=== PATIENT | male | born 1955 | race Caucasian/White ===

== ENCOUNTER 2017-07-16 09:39 | Inpatient (IN) ==
[2017-07-16] MEDS ORDERED: cefOXitin 2,000 MG in Water for inj. (sterile) 20 ML 10 ML IVP ONE (09:57)
[2017-07-16] MEDS ORDERED: Ringers Solution, Lactated 1,000 ML IVC SCH (10:00)
--- NOTE | 2017-07-16 10:20 | Anesthesia Evaluation PreOp ---
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 Collar bone abcess, CABG,) Alcohol Use: none Drug use: none Medications and Allergies Furosemide [Lasix] 20 mg PO DAILY 02/12/17 [History] Iron Ps Cmplx/Vit B12/FA [Iferex 150 Forte Capsule] 1 each PO DAILY 02/12/17 [ History] metFORMIN [Glucophage] 500 mg PO BID 02/12/17 [History] Aspirin Enteric Coated [Aspirin EC] 81 mg PO DAILY 03/21/17 [History] Lisinopril [Zestril] 10 mg PO DAILY 03/21/17 [History] Metoprolol [Lopressor] 50 mg PO BID 03/21/17 [History] Rosuvastatin [Crestor] 40 mg PO HS 03/21/17 [History] 3 Allergy/AdvReac Type Severity Reaction Status Date / Time No Known Allergies Allergy Verified 07/16/17 10:33 - Meds/Allergy Pre-op Review Medications Reviewed: Yes Allergies Reviewed: Yes Beta Blockers on Current Med List: Yes If Beta Blockers taken, Date/Time (Last Dose taken): 07/16/2017 @ 06:00 Anesthesia Results - Labs Laboratory Tests 04/22/17 07/09/17 15:14 16:03 WBC 6.3 Hgb 13.8 Hct 45.3 Plt Count 216 Sodium 138 Potassium 4.3 Chloride 106 Carbon Dioxide 25 BUN 20 Creatinine 1.01 Echocardiogram TTE Name: Torey Mondragon Date of Study: 10/29/2016 Impressions: LVEF 60%. Normal LV chamber size and function. Severe hypertrophy of the basal septum measuring 2.2 cm. Systolic anterior motion of the mitral valve leaflets. Mild LVOT obstruction, mean gradient 15 mmHg. Mild left ventricular diastolic dysfunction. Atypical septal motion consistent with post-operative status. Normal right ventricular structure and function. Moderate mitral stenosis by Doppler, mean gradient 8 mmHg (HR 85 bpm). Unable to estimate RVSP due to lack of TR jet. No evidence of pulmonary hypertension. There is a trivial pericardial effusion present. 10/29/2016 stress No ischemia EF-37% - Imaging EKG: report reviewed (SR, consider lat. ishemia) Anesthesia Exam Vital Signs/O2 Sat, Most Current Temp Pulse Resp BP Pulse Ox 97.8 F 71 18 129/82 97 07/16/17 10:01 07/16/17 10:01 07/16/17 10:01 07/16/17 10:01 07/16/17 10:01 NPO (# of Hours): > 8 hrs Pain Scale: 0 Pain Scale Used: Numeric (1 - 10) - HEENT Pupil (Motor): Pupils equal, EOMI Mallampati: II Teeth: Normal Oral Opening: Greater than 3 - PRODUCTION PLANNING SUPERVISOR LOC: Oriented PRODUCTION PLANNING SUPERVISOR Motor: Normal RUE, Normal LUE, Normal RLE, Normal LLE, Normal Face PRODUCTION PLANNING SUPERVISOR Sensory: Normal: RUE, LUE, RLE, LLE, Face - Cardiac Rhythm: Regular Murmur: None JVD: No Carotid Bruit: No - Pulmonary Breath Sounds: bilateral Clear Respiratory Effort: Symmetrical Anesthesia Assess/Plan ASA Score: 4 Modified Robert Scale for Level of Consciousness: Cooperative, oriented, and tranquil Anesthetic Plan: General, Regional Autologous Blood: Yes Monitoring Plan: Standard Monitors, A-Line, CVC
[2017-07-16] MEDS ORDERED: Heparin 1,000 UNITS/500 mL 500 ML ONE ×2 (11:07→13:18)
[2017-07-16] MEDS ORDERED: *HR* Etomidate 40 MG/20 ML VIAL IVP ONE (11:55)
[2017-07-16] MEDS ORDERED: *HR* Midazolam HCl 2 MG/2 ML VIAL ONE (11:56)
[2017-07-16] MEDS ORDERED: *HR* FentaNYL (PF) 100 MCG/2 ML VIAL ONE ×4 (11:56→14:26)
--- NOTE | 2017-07-16 11:56 | History & Physical Report ---
Date of Encounter: 07/16/17 Time of Encounter: 11:56 24 Hour HP Update - Instructions Instructions: If the History and Physical is less than 30 days old and was completed prior to A.M. admission and or procedure and has NOT been updated on calendar day of procedure please complete this update prior to performing procedure. - Update Patient reports changes in Medical Condition: No Changes in examination, assessment, or condition: No Changes in Medication: No Preop tests/diagnostics Reviewed: Yes Pre-Op MRSA Screen: Negative Surgery Remains Indicated: Yes Consent for Planned Operative Procedure(s) Verified: Yes - Pre-Operative Checklist Preoperative Checklist Indicated: No Prophylactic Antibiotic Ordered: Yes Home Medications Include Beta Meli: No Beta Meli Taken Today (Day of Surgery): No Beta Meli Taken Yesterday (Day Prior to Surgery): No Is VTE Prophylaxis Indicated?: NO
[2017-07-16] MEDS ORDERED: *HR* Morphine Sulfate/PF 10 MG/10 ML AMPUL ONE (12:05)
[2017-07-16] MEDS ORDERED: *HR* Succinylcholine 200 MG/10 ML VIAL IVP ONE (12:12)
[2017-07-16] MEDS ORDERED: Lidocaine -MPF 2% 2 ML VIAL ONE (12:13)
[2017-07-16] MEDS ORDERED: Lidocaine -MPF 4% 5 ML AMPUL ONE (12:17)
[2017-07-16] MEDS ORDERED: *HR* PHENYLEPHRINE 1,000 MCG/10 ML SYRINGE IVP ONE (12:18)
[2017-07-16] MEDS ORDERED: *HR* Phenylephrine 10 MG/ML VIAL ONE (12:24)
[2017-07-16] MEDS ORDERED: CefOXitin 1,000 MG VIAL ONE (12:29)
[2017-07-16] MEDS ORDERED: Bupivacaine/EPI 1:200k 0.5%PF 30 ML VIAL ONE (12:30)
[2017-07-16] MEDS ORDERED: Dexamethasone 4 MG/ML VIAL ONE (14:37)
[2017-07-16] MEDS ORDERED: Ondansetron 4 MG/2 ML VIAL ONE (14:37)
--- NOTE | 2017-07-16 14:46 | Anesthesia Procedures ---
Date of Encounter: 07/16/17 Time of Encounter: 13:30 Procedures: Anesthesia - Arterial Line Consent obtained: written consent Time out performed: Yes Sedation: Versed (mg): 2 Sedation: Fentanyl (mcg): 2 Size (Gauge): 20 Length (inches): 1 3/4 Technique Used: sterile prep, guide wire technique, direct puncture technique Post-Procedure: line taped into place, dry sterile dressing placed Patient tolerated procedure: well Complications: none Site: Radial R Comments: attempt x 1 easy - Central Line Placement Right IJ Consent obtained: written consent Time out performed: Yes Patient placed on monitor/pulse ox: Yes prep: mask, gown, gloves Central line prep: Chlorhexidine scrub Ultrasound used for placement: Yes Technique: Seldinger Lumen Inserted: Introducer Post procedure: sutured in place, good blood return, all ports aspirated, flushed, capped, sterile dressing applied Patient tolerated procedure: well Complications: hematoma at puncture site Comments: Introducer placed for possible future need of swan richard catheter due to LVOT obstruction. Right IJ used, first attempt able to place guidewire but unable to easily advance dilator. Guide wire then is possibly contaminated so is removed. Hematoma forms but is contained with pressure. Second attempt is made and IJ accessed easily, guidewire without problems and introducer/dilator placed easily. Aspiration easy. Double lumen catheter placed thru introducer.
[2017-07-16] MEDS ORDERED: Ondansetron 4 MG/2 ML VIAL IVP PRN ×2 (14:57→19:27)
[2017-07-16] MEDS ORDERED: *HR* OxyCODONE/APAP 5/325 TABLET PO PRN (14:57)
[2017-07-16] MEDS ORDERED: Neostigmine Methylsulfate 3 MG/3 ML SYRINGE ONE (15:05)
[2017-07-16] MEDS ORDERED: *HR* Rocuronium Bromide 50 MG/5 ML VIAL ONE (15:12)
[2017-07-16] MEDS ORDERED: *HR* HYDROmorphone (PF) 1 MG/ML SYRINGE IVP PRN (15:27)
[2017-07-16] MEDS ORDERED: *HR* OxyCODONE Immed Rel 5 MG TABLET PO PRN (15:27)
[2017-07-16] MEDS ORDERED: *HR* Promethazine 25 MG/ML VIAL IVP PRN (15:27)
--- NOTE | 2017-07-16 15:41 | Anesthesia Procedures ---
Date of Encounter: 07/16/17 Time of Encounter: 13:10 Procedures: Anesthesia - Epidural/Spinal Patient ID/Chart reviewed: Yes Patient examined: Yes Supplemental Oxygen: Nasal Cannula Supplemental Oxygen Rate (L/min): 2 Sedation: Versed (mg): 2 Site Prep: Aseptic Technique, Sterile prep and drape, Povidone-Iodine 1% Patient position: upright Local Anesthetic: Lidocaine 1% Amount of Local Anesthetic used: 5 Spinal Needle Gauge: 22 Spinal Dose: 20 mcg fentanyl and 0.2 mg duramorph Procedure: patient placed sitting, back prepped L3/L4 level with betadine. 1% lidocaine at skin. introducer placed 25 g needle unsuccessful, 22 g needle used csf encountered, clear no blood or paraesthesia. meds injected, patient tolerated well, successful spinal block, block performed by Dr. Kaur. Vitals + FHT's: see anesthesia record for vitals
[2017-07-16] MEDS ORDERED: CefOXitin 2,000 MG VIAL ONE (17:25)
--- NOTE | 2017-07-16 17:40 | Operative Note ---
Date of procedure: 07/16/17 Pre-op diagnosis: Rectal cancer Post-op diagnosis: same Procedure: Low anterior resection Anesthesia: GETA Surgeon: Junior Marquis Was there an engineering inspection assistant present: Yes Human Resources Officer: Stefanie Ashby Estimated blood loss (cc): 75 Specimen: sigmoid/rectum, anastamotic rings Condition: stable Disposition: PACU Procedure in Detail: Date of surgery: 07/16/17 After properly identifying the patient, the patient was brought to the operating room and placed in the supine position. After proper IV sedation was achieved followed by general endotracheal intubation, the patient's abdomen was prepped and draped in a normal sterile fashion. A timeout was performed noting the patient's name and type of procedure to be performed. The patient was placed in a low lithotomy position prior to the prepping and draping. The perianal tissue was also prepped and draped along with the abdomin. A 10 blade scalpel was used to make an incision several centimeters above the umbilicus extending inferiorly down to the pubic symphysis. Dissection was carried through the subcutaneous tissue and rectus fascia until the abdomen was entered. A wound protector was placed through the incision to protect the subcutaneous tissue and a Bookwalter was brought onto the field to retract the fascial tissue laterally. The sigmoid was examined and dissected from the lateral wall down to the rectosigmoid junction was performed. The junction of the sigmoid colon to the descending colon was examined; the decision was made to transect across the colon with a INDIO stapler in this region. The mesentery was then dissected down towards the presacral space and posterior dissection was carried out with Bovie cauterization and utilization of a handheld Ligasure. The left ureter was identified and spared. Examination demonstrated that there was evidence of tenting along the anterior surface of the rectum consistent with the patient's diagnosis of a rectal cancer. This tenting was very low in the rectum just above the pelvic floor. There was thickness of the mesentery and also around the rectum in the presacral space due to the patient's neoadjuvant chemoradiation therapy. Bovie cauterization was used to maintain hemostasis and dissection was carried along the peritoneum anteriorly towards the bladder and prostate. The rectal mesentery was then transected with Bovie cauterization and utilization of a LigaSure and an attempt at placing a stapler below the level of the tenting or presumed location of the rectal cancer was made. During the retraction the anterior surface of the rectum was iatrogenically opened (an enterotomy was created) which was an anticipated and expected consequence due to the patient's neoadjuvant chemoradiation therapy and the tenting that was present. A Contour stapler was placed distal to the presumed location of the rectal cancer right at the pelvic floor and the staple was fired. The intervening colonic segment was then sent to pathology. The enterotomy was identified and Allis clamps were used to reapproximate the mucosa and a vascular TA stapler was then used to close the enterotomy. The pelvis was copiously irrigated with normal saline solution containing Mefoxin and the decision was then made to examine the colonic stump. The staple line was opened with Bovie cauterization and sizers were placed within the lumen to determine the appropriate size for anastamosis. A 29- Spanish EEA stapler was brought to the operative field. A 2-0 Prolene suture was used to create a pursestring and the anvil of the stapler device was placed within the lumen followed by tying of the pursestring. The EEA stapler was placed through the anus and the male end of the staple line was extruded above the level of the TA staple line. The anvil was then connected to the male and of the staple device and the staple line was then completed. Examination demonstrated 2 is anastomotic rings which were submitted to pathology. The pelvis was filled with normal saline solution containing Mefoxin and air was placed through the rectum while clamping of the distal colon (descending colon) was performed which demonstrated no evidence of a leak. The abdomen was copiously irrigated with normal saline solution containing Mefoxin and a 19- Spanish Bernardo drain was placed in the abdomen down to the pelvis. The decision was then made to place Seprafilm within the abdomen and close the midline incision with #1 looped PDS 2. The subcutaneous tissue was reapproximated with 2-0 Vicryl sutures and 2 On-Q pain pumps were placed along the midline incision through the subcutaneous tissue for pain control. The epidermal and dermal layers were closed with enrique. Needle, sponge, and instrument counts were correct 2 and the incision was covered with 4 x 4's. The patient was aroused from IV sedation, extubated in the operating room without complication, and transported to the recovery room in stable condition.
--- NOTE | 2017-07-16 19:02 | Anesthesia Evaluation Post Op ---
Date of Encounter: 07/16/17 Time of Encounter: 19:02 - Vital Signs Vital Signs: Vital Signs/O2 Sat, Most Current Temp Pulse Resp BP Pulse Ox 99.6 F 74 16 156/88 96 07/16/17 18:03 07/16/17 18:33 07/16/17 18:33 07/16/17 18:33 07/16/17 18:33 - Lungs Lungs: Clear Ascult./Percussion - Airway Airway: Non-obstructed - Cardiovascular Regular Rate - Mental Status Mental Status: Alert & Oriented, Answers Appropriately - Pain Pain Scale: 0 Pain Scale used: Numeric (1 - 10) - Nausea Vomiting Nausea Vomiting: Not Present - Hydration Hydration: Ice chips, Aragon catheter - Discharge PostOp Status: Transfer Patient to floor
[2017-07-16] MEDS ORDERED: Naloxone 0.4 MG/ML INJ IVP PRN ×2 (19:27)
[2017-07-16] MEDS ORDERED: D5% in Water 1,000 ML IVC PRN (19:27)
[2017-07-16] MEDS ORDERED: Dextrose Gel 15 GM/37.5 ML TUBE PO PRN ×2 (19:27)
[2017-07-16] MEDS ORDERED: *HR* Dextrose 50 % in Water (Syg) 50 ML SYRINGE IVP PRN (19:27)
[2017-07-16] MEDS: *HR* FentaNYL PATCH 25 MCG PATCH TD SCH (21:59)
[2017-07-16] MEDS: *HR* Metoprolol 5 MG/5 ML VIAL IVP SCH (22:02)
[2017-07-16] MEDS: 0.9 % Sodium Chloride 1,000 ML IVC SCH (22:02)
[2017-07-16] MEDS: Ketorolac 30 MG/ML VIAL IM SCH (22:02)
[2017-07-16] MEDS: Insulin LISPRO 300 UNITS/3 ML VIAL SQ SCH (22:02)
[2017-07-17] MEDS: Ketorolac 30 MG/ML VIAL IM SCH ×2 (00:15→06:12)
[2017-07-17] MEDS: Insulin LISPRO 300 UNITS/3 ML VIAL SQ SCH ×6 (00:19→23:36)
[2017-07-17] MEDS: cefOXitin 1,000 MG in Water for inj. (sterile) 20 ML 10 ML IVP SCH ×3 (00:21→16:27)
[2017-07-17] MEDS: *HR* Metoprolol 5 MG/5 ML VIAL IVP SCH ×5 (00:24→23:47)
[2017-07-17 06:02] LABS: Basophils % 0.1 %; Hematocrit 43.8 % (37.5-50.1); Hemoglobin 13.7 g/dL (12.9-16.9); Immature Granulocytes % 0.3 % (0-4); Lymphocytes # 1.1 K/mcL (0.6-4.6); Lymphocytes % 8.2 %; Mean Corpuscular HGB Conc 31.3 g/dL (31.6-35.5); Mean Corpuscular Hemoglobin 27.1 pg (28.0-33.3); Mean Corpuscular Volume 86.6 fL (83.0-100.0); Mean Platelet Volume 11.6 fL (9.4-12.4); Monocytes # 0.9 K/mcL (0.0-1.3); Monocytes % 6.5 %; Neutrophils # 11.3 K/mcL (1.6-8.9); Platelet Count 209 K/mcL (140-400); Red Blood Count 5.06 M/mcL (4.19-5.50); Red Cell Distribution Width 14.3 % (11.5-14.5); Segmented Neutrophils % 84.9 %
[2017-07-17 06:10] LABS: BUN/Creatinine Ratio 12 (6-26); Blood Urea Nitrogen 16 mg/dL (8-23); Calcium 8.7 mg/dL (8.6-10.3); Carbon Dioxide 23 mEq/L (23-29); Chloride 106 mEq/L (98-107); Glucose 157 mg/dL (70-105); Osmolality,Calculated 286 (280-300); Potassium 5.3 mEq/L (3.5-5.1); Sodium 136 mEq/L (136-145); eGFR For African Americans > 60 (> 60); eGFR For Non-African Americans 56 (> 60)
[2017-07-17] MEDS: 0.9 % Sodium Chloride 1,000 ML IVC SCH ×3 (06:10→21:40)
[2017-07-17] MEDS: Pantoprazole 40 MG VIAL IVP SCH (08:19)
--- NOTE | 2017-07-17 10:29 | General Surgery Progress Note ---
<Adia Pearson - Last Filed: 07/17/17 10:27> Date of Encounter: 07/17/17 Time of Encounter: 10:00 - Assessment and Plan (1) Rectal adenocarcinoma Status: Acute Postoperative day #1 Low anterior resection with Dr. Marquis Pathology pending Maintain bowel rest while awaiting return of bowel function NG tube to low intermittent wall suction IV fluids- 125ml/hour IV antibiotics- Cefoxitin Out of bed to chair and ambulate with assistance 3 times a day Incentive spirometer every 1 hour while awake GI prophylaxis Continue Aragon catheter for strict I's and O's Continue ALYSSA drain Continue On-Q pain pump 2 Repeat a.m. labs- CBC, BMP (2) Hyperglycemia Status: Acute Change sliding scale coverage to moderate scale every 4 hours We will continue to monitor and adjust as necessary (3) DVT prophylaxis Status: Acute Heparin 5000 units subcutaneous twice daily for DVT prophylaxis Intermittent compression stockings to bilateral lower extremities for DVT prophylaxis Ambulate hallways 3 times a day with assistance Subjective Patient reports: still having pain (post surgical pain well controlled), no flatus, no bowel movement, afebrile Objective Vital Signs - Last 8 Hours Temp Pulse Resp BP Pulse Ox 07/17/17 05:14 98.5 F 77 15 141/86 98 Intake and Output 07/16/17 07/17/17 07/17/17 23:59 07:59 15:59 Intake Total 1010 / 1010 282 / 282 Output Total 455 / 455 715 / 715 Balance -455 / -455 295 / 295 282 / 282 Intake: IV Fluids 1010 / 1010 282 / 282 0.9 % Sodium Chloride 1,000 ML 1000 / 1000 282 / 282 @ 125 mls/hr IVC .Q8H SANDRA Rx#: [id number] Mefoxin 1,000 MG In Water for inj. (sterile) 10 ML @ 150 mls/ hr IVP Q8HR SANDRA Rx#:[id number] Oral 0 / 0 Output: Urine 0 / 0 Estimated Blood Loss 75 / 75 Urine Amount (Catheter) 320 / 320 Catheter 675 / 675 Gastric Drainage 0 / 0 Wound Drainage 60 / 60 40 / 40 Left Lower Abdomen 60 / 60 40 / 40 Other: Meal NPO for breakfast Weight 110.4 kg Blood Glucose* 158 151 Patient Weight 07/17/17 23:59 Weight 110.4 kg - General physical appearance well developed, well nourished, no distress, obese - Eyes normal ocular movement - ENT dry mucosa, atraumatic, normocephalic - Neck Neck exam: trachea midline - Respiratory normal respiratory effort, clear to auscultation, other (diminished bibasilar bases) - Cardiovascular Cardiovascular exam: Present: RRR - Abdomen Abdomen: Present: bowel sounds present (minimal, hypoactive), soft, tender ( Expected postoperative tenderness), wound (ALYSSA drain to bulb suction with serosanguineous drainage noted (100ml noted since surgery); NG tube to low intermittent wall suction with 200 mL's of gastric drainage; On-Q pain pump 2 intact) - Incision Incision: Present: clean and dry, intact - Genitourinary other (Aragon catheter to straight drain with clear, yellow urine) - Neurologic CN 2-12 grossly intact - Psychiatric oriented to time, oriented to person, oriented to place, speech is normal, memory intact - Labs 07/17/17 04:04 07/17/17 04:04 Diabetes panel 07/17/17 Range/Units 04:04 Sodium 136 (136-145) mEq/L Potassium 5.3 H (3.5-5.1) mEq/L Chloride 106 (98-107) mEq/L Carbon Dioxide 23 (23-29) mEq/L BUN 16 (8-23) mg/dL Creatinine 1.30 (0.70-1.30) mg/dL Glucose 157 H (70-105) mg/dL Calcium 8.7 (8.6-10.3) mg/dL Calcium panel 07/17/17 Range/Units 04:04 Calcium 8.7 (8.6-10.3) mg/dL Pituitary panel 07/17/17 Range/Units 04:04 Sodium 136 (136-145) mEq/L Potassium 5.3 H (3.5-5.1) mEq/L Chloride 106 (98-107) mEq/L Carbon Dioxide 23 (23-29) mEq/L BUN 16 (8-23) mg/dL Creatinine 1.30 (0.70-1.30) mg/dL Glucose 157 H (70-105) mg/dL Calcium 8.7 (8.6-10.3) mg/dL Adrenal panel 07/17/17 Range/Units 04:04 Sodium 136 (136-145) mEq/L Potassium 5.3 H (3.5-5.1) mEq/L Chloride 106 (98-107) mEq/L Carbon Dioxide 23 (23-29) mEq/L BUN 16 (8-23) mg/dL Creatinine 1.30 (0.70-1.30) mg/dL Glucose 157 H (70-105) mg/dL Calcium 8.7 (8.6-10.3) mg/dL - VTE Documentation of Mechanical Device: Intermittent pneumatic compression device Consult Discharge Plan - Plan Instructions: Colectomy (DC), Colectomy (GEN) Additional Instructions: 1. No pushing, pulling, or lifting greater than 15 lbs for 4 weeks (depending upon procedure). 2. You may shower beginning today, but no tub baths, soaking, or swimming for 2 weeks. 3. You may resume driving when you are off narcotics and are safe to react in a car. 4. Take ibuprofen every 8 hours for discomfort. If this does not relieve discomfort, you may take the as needed Percocet. Take narcotics as directed. Do not take more narcotics then directed and do not share your narcotics with any other person. Do not drink alcohol while on narcotics. 5. Take stool softeners (Colace) or a water based laxative (Miralax) while taking narcotics. You may hold for loose stools. 6. Report any fevers greater than 100.5F, increase abdominal discomfort, drainage that looks like pus, increased redness or pain at the surgical site, or any vomiting. 7. Report any pain in the calves, shortness of breath, or rapid heartbeat. 8. Follow-up in the office as directed. 9. If you were prescribed antibiotics, do not stop them without talking to your provider. Referrals: Junior Marquis MD [Partnered Physician] - 07/29/17 4:25 pm Prescriptions: Ibuprofen [Motrin] 600 mg PO Q8HR PRN #30 tab PRN Reason: Pain Docusate [Colace] 100 mg PO BID PRN #30 capsule PRN Reason: Constipation Oxycodone HCl/Acetaminophen [Percocet 10-325 mg Tablet] 1 each PO Q6-8H PRN 6 Days #24 tablet PRN Reason: Pain - Attending Attestation For this encounter, I have reviewed the FOREIGN LANGUAGE STENOGRAPHER or PA documentation, treatment plan, and medical decision making; and I have had face to face time with this patient. <Junior Marquis M - Last Filed: 07/22/17 06:48> Date of Encounter: 07/17/17 Objective - Labs 07/20/17 06:39 07/20/17 06:39 - Attending Attestation I reviewed the above assessment and evaluation and agree with the above plan.
[2017-07-17] MEDS: *HR* Heparin 5,000 UNIT/ML VIAL SQ SCH ×2 (18:04→18:10)
[2017-07-17] MEDS: OXYCODONE Oral CONC 10 MG/0.5 ML ORAL.SYG SL PRN (21:38)
[2017-07-18] MEDS: OXYCODONE Oral CONC 10 MG/0.5 ML ORAL.SYG SL PRN ×3 (04:23→23:34)
[2017-07-18] MEDS: Insulin LISPRO 300 UNITS/3 ML VIAL SQ SCH ×5 (04:26→20:35)
[2017-07-18] MEDS: 0.9 % Sodium Chloride 1,000 ML IVC SCH ×3 (05:06→20:09)
[2017-07-18] MEDS: *HR* Heparin 5,000 UNIT/ML VIAL SQ SCH ×2 (05:07→18:08)
[2017-07-18] MEDS: *HR* Metoprolol 5 MG/5 ML VIAL IVP SCH ×4 (05:09→23:32)
[2017-07-18 07:28] LABS: Basophils % 0.3 %; Eosinophils # 0.1 K/mcL (0.0-0.6); Eosinophils % 0.5 %; Hematocrit 37.7 % (37.5-50.1); Immature Granulocytes % 0.2 % (0-4); Lymphocytes # 1.4 K/mcL (0.6-4.6); Lymphocytes % 14.9 %; Mean Corpuscular HGB Conc 30.5 g/dL (31.6-35.5); Mean Corpuscular Hemoglobin 27.1 pg (28.0-33.3); Mean Corpuscular Volume 88.7 fL (83.0-100.0); Mean Platelet Volume 11.4 fL (9.4-12.4); Monocytes # 0.8 K/mcL (0.0-1.3); Monocytes % 8.8 %; Neutrophils # 6.9 K/mcL (1.6-8.9); Platelet Count 151 K/mcL (140-400); Red Blood Count 4.25 M/mcL (4.19-5.50); Red Cell Distribution Width 14.6 % (11.5-14.5); Segmented Neutrophils % 75.3 %
[2017-07-18 07:51] LABS: Hemoglobin 11.5 g/dL (12.9-16.9)
[2017-07-18] MEDS: Pantoprazole 40 MG VIAL IVP SCH (08:07)
[2017-07-18 09:39] LABS: BUN/Creatinine Ratio 14 (6-26); Blood Urea Nitrogen 13 mg/dL (8-23); Calcium 8.4 mg/dL (8.6-10.3); Carbon Dioxide 25 mEq/L (23-29); Chloride 109 mEq/L (98-107); Glucose 122 mg/dL (70-105); Osmolality,Calculated 287 (280-300); Potassium 4.5 mEq/L (3.5-5.1); Sodium 138 mEq/L (136-145); eGFR For African Americans > 60 (> 60); eGFR For Non-African Americans > 60 (> 60)
--- NOTE | 2017-07-18 11:57 | General Surgery Progress Note ---
<Rita Guevara-Andreia - Last Filed: 07/18/17 11:55> Date of Encounter: 07/18/17 Time of Encounter: 07:15 - Assessment and Plan (1) Rectal adenocarcinoma Current Visit: Yes Status: Acute Postoperative day #2 Low anterior resection with Dr. Marquis Pathology pending Maintain bowel rest while awaiting return of bowel function connect NG tube to Aragon. Check in 6 hours and if residual is less than 50 cc , plan to discontinue the NG tube. IV fluids- 125ml/hour IV antibiotics- Cefoxitin Out of bed to chair and ambulate with assistance 3 times a day Incentive spirometer every 1 hour while awake GI prophylaxis Continue Aragon for strict I's and O's Continue ALYSSA drain Continue On-Q pain pump 2 Repeat a.m. labs- CBC, BMP (2) DVT prophylaxis Current Visit: Yes Status: Acute Heparin 5000 units subcutaneous twice daily for DVT prophylaxis Intermittent compression stockings to bilateral lower extremities for DVT prophylaxis Ambulate hallways 3 times a day with assistance (3) Hyperglycemia Current Visit: Yes Status: Acute Continue on sliding scale.We will continue to monitor and adjust as necessary Subjective Patient reports: still having pain, no flatus, no bowel movement, afebrile Narrative: The patient was seen and evaluated at bedside this morning. Patient was alert, awake, afebrile, and appears in no acute distress. Patient states he is comfortable and feels better today. Patient admits he has some tenderness in his abdomen and that his pain is controlled. Patient denies any nausea and vomiting. The patient denies flatus as well. The patient denies any fever, headaches, vision changes, chest pain, shortness of breath, difficulty breathing , numbness and tingling, urinary symptoms, and any weaknesses. The patient has no other concerns at this time. Objective Vital Signs - Last 8 Hours Temp Pulse Resp BP Pulse Ox 07/18/17 10:06 99.0 F 71 16 130/76 96 07/18/17 07:14 98.1 F 71 18 129/75 95 07/18/17 04:22 98.1 F 74 16 115/68 95 Intake and Output 07/17/17 07/18/17 07/18/17 23:59 07:59 15:59 Intake Total 1070 / 1070 1060 / 1060 0 / 0 Output Total 740 / 740 1160 / 1160 200 / 200 Balance 330 / 330 -100 / -100 -200 / -200 Intake: IV Fluids 1010 / 1010 1000 / 1000 0.9 % Sodium Chloride 1,000 ML 1000 / 1000 1000 / 1000 @ 125 mls/hr IVC .Q8H [facility] Rx#: [id number] Mefoxin 1,000 MG In Water for 10 / 10 inj. (sterile) 10 ML @ 150 mls/ hr IVP Q8HR [facility] Rx#:[id number] Oral 60 / 60 60 / 60 0 / 0 Output: Catheter 700 / 700 750 / 750 200 / 200 Gastric Drainage 400 / 400 Wound Drainage 40 / 40 10 / 10 0 / 0 Left Lower Abdomen 40 / 40 10 / 10 0 / 0 Other: Meal NPO DINNER NPO Percent of Meal Consumed 0% Weight 110.04 kg Blood Glucose* 129 109 138 Patient Weight 07/18/17 23:59 Weight 110.04 kg - General physical appearance well developed, well nourished, no distress - Eyes PERRL, normal ocular movement - ENT normal mucosa - Neck Neck exam: trachea midline - Respiratory normal expansion, normal respiratory effort, other (Decreased breath sounds in bilateral bases) - Cardiovascular Cardiovascular exam: Present: RRR, no murmurs/rubs/gallops - Abdomen Abdomen: Present: bowel sounds present, soft, tender (Appropriate post operative tenderness.), wound (ALYSSA drain to bulb suction with serosanguineous drainage noted). Absent: guarding, rebound Additional Comments: NG tube to low intermittent wall suction - Incision Incision: Present: clean and dry, intact. Absent: draining, purulent - Genitourinary other (Aragon catheter is in placed) - Integumentary no rash - Neurologic CN 2-12 grossly intact - Psychiatric oriented to time, oriented to person, oriented to place - Labs 07/18/17 06:43 07/18/17 06:43 Diabetes panel 07/18/17 Range/Units 06:43 Sodium 138 (136-145) mEq/L Potassium 4.5 (3.5-5.1) mEq/L Chloride 109 H (98-107) mEq/L Carbon Dioxide 25 (23-29) mEq/L BUN 13 (8-23) mg/dL Creatinine 0.96 (0.70-1.30) mg/dL Glucose 122 H (70-105) mg/dL Calcium 8.4 L (8.6-10.3) mg/dL Calcium panel 07/18/17 Range/Units 06:43 Calcium 8.4 L (8.6-10.3) mg/dL Pituitary panel 07/18/17 Range/Units 06:43 Sodium 138 (136-145) mEq/L Potassium 4.5 (3.5-5.1) mEq/L Chloride 109 H (98-107) mEq/L Carbon Dioxide 25 (23-29) mEq/L BUN 13 (8-23) mg/dL Creatinine 0.96 (0.70-1.30) mg/dL Glucose 122 H (70-105) mg/dL Calcium 8.4 L (8.6-10.3) mg/dL Adrenal panel 07/18/17 Range/Units 06:43 Sodium 138 (136-145) mEq/L Potassium 4.5 (3.5-5.1) mEq/L Chloride 109 H (98-107) mEq/L Carbon Dioxide 25 (23-29) mEq/L BUN 13 (8-23) mg/dL Creatinine 0.96 (0.70-1.30) mg/dL Glucose 122 H (70-105) mg/dL Calcium 8.4 L (8.6-10.3) mg/dL - VTE Documentation of Mechanical Device: Intermittent pneumatic compression device Consult Discharge Plan - Plan Referrals: Junior Marquis MD [Partnered Physician] - 07/29/17 4:25 pm <Tito Wright - Last Filed: 07/19/17 08:32> Date of Encounter: 07/18/17 Objective Vital Signs - Last 8 Hours Temp Pulse Resp BP Pulse Ox 07/19/17 07:54 98.6 F 73 16 136/82 96 07/19/17 04:42 98.3 F 68 16 133/81 92 07/19/17 00:40 97.8 F 70 16 131/75 96 Intake and Output 07/18/17 07/19/17 07/19/17 23:59 07:59 15:59 Intake Total 1000 / 1000 1000 / 1000 Output Total 520 / 520 860 / 860 Balance 480 / 480 140 / 140 Intake: IV Fluids 1000 / 1000 1000 / 1000 0.9 % Sodium Chloride 1,000 ML 1000 / 1000 1000 / 1000 @ 125 mls/hr IVC .Q8H [facility] Rx#: [id number] Output: Catheter 500 / 500 850 / 850 Wound Drainage Left Lower Abdomen Other: Weight 102.535 kg Blood Glucose* 89 92 Patient Weight 07/19/17 23:59 Weight 102.535 kg - Labs 07/19/17 06:11 07/19/17 06:11 Diabetes panel 07/18/17 07/19/17 Range/Units 06:43 06:11 Sodium 138 138 (136-145) mEq/L Potassium 4.5 3.9 (3.5-5.1) mEq/L Chloride 109 H 108 H (98-107) mEq/L Carbon Dioxide 25 22 L (23-29) mEq/L BUN 13 10 (8-23) mg/dL Creatinine 0.96 0.73 (0.70-1.30) mg/dL Glucose 122 H 106 H (70-105) mg/dL Calcium 8.4 L 8.4 L (8.6-10.3) mg/dL Calcium panel 07/18/17 07/19/17 Range/Units 06:43 06:11 Calcium 8.4 L 8.4 L (8.6-10.3) mg/dL Pituitary panel 07/18/17 07/19/17 Range/Units 06:43 06:11 Sodium 138 138 (136-145) mEq/L Potassium 4.5 3.9 (3.5-5.1) mEq/L Chloride 109 H 108 H (98-107) mEq/L Carbon Dioxide 25 22 L (23-29) mEq/L BUN 13 10 (8-23) mg/dL Creatinine 0.96 0.73 (0.70-1.30) mg/dL Glucose 122 H 106 H (70-105) mg/dL Calcium 8.4 L 8.4 L (8.6-10.3) mg/dL Adrenal panel 07/18/17 07/19/17 Range/Units 06:43 06:11 Sodium 138 138 (136-145) mEq/L Potassium 4.5 3.9 (3.5-5.1) mEq/L Chloride 109 H 108 H (98-107) mEq/L Carbon Dioxide 25 22 L (23-29) mEq/L BUN 13 10 (8-23) mg/dL Creatinine 0.96 0.73 (0.70-1.30) mg/dL Glucose 122 H 106 H (70-105) mg/dL Calcium 8.4 L 8.4 L (8.6-10.3) mg/dL - Attending Attestation I examined this patient and my medical decision-making was reviewed with the Resident Physician. I agree with the documented findings, disposition and treatment plan as described except to the extent set forth below. The patient is seen and evaluated on morning rounds with the resident. She continues to have expected postoperative ileus after extensive lysis of adhesions with radiated bowel. We will continue supportive hydration and electrolyte management as well as total parenteral nutrition. Tito Wright MD FACS
[2017-07-19] MEDS: Insulin LISPRO 300 UNITS/3 ML VIAL SQ SCH ×4 (01:04→16:25)
[2017-07-19] MEDS: 0.9 % Sodium Chloride 1,000 ML IVC SCH (04:11)
[2017-07-19] MEDS: *HR* Metoprolol 5 MG/5 ML VIAL IVP SCH ×3 (05:35→18:05)
[2017-07-19] MEDS: *HR* Heparin 5,000 UNIT/ML VIAL SQ SCH ×2 (05:36→18:04)
[2017-07-19 07:07] LABS: BUN/Creatinine Ratio 14 (6-26); Blood Urea Nitrogen 10 mg/dL (8-23); Calcium 8.4 mg/dL (8.6-10.3); Carbon Dioxide 22 mEq/L (23-29); Chloride 108 mEq/L (98-107); Glucose 106 mg/dL (70-105); Osmolality,Calculated 285 (280-300); Potassium 3.9 mEq/L (3.5-5.1); Sodium 138 mEq/L (136-145); eGFR For African Americans > 60 (> 60); eGFR For Non-African Americans > 60 (> 60)
--- NOTE | 2017-07-19 07:36 | General Surgery Progress Note ---
<Rita Guevara-Andreia - Last Filed: 07/19/17 08:44> Date of Encounter: 07/19/17 Time of Encounter: 06:50 - Assessment and Plan (1) Rectal adenocarcinoma Status: Acute Postoperative day #3 Low anterior resection with Dr. Marquis Pathology pending Clear liquid diet. Advance as tolerated NG tube was discontinued on 07/18/17 and patient tolerated removal of NG tube well. Bowel sounds present in all 4 quadrants. Patient admits passing gas. Advance to clear liquid diet as tolerated. IV fluids- 125ml/hour IV antibiotics- Cefoxitin Out of bed to chair and ambulate with assistance 3 times a day Incentive spirometer every 1 hour while awake GI prophylaxis Discontinue Aragon Continue ALYSSA drain Continue On-Q pain pump 2 Repeat a.m. labs- CBC, BMP (2) DVT prophylaxis Status: Acute Heparin 5000 units subcutaneous twice daily for DVT prophylaxis Intermittent compression stockings to bilateral lower extremities for DVT prophylaxis Ambulate hallways 3 times a day with assistance (3) Hyperglycemia Status: Acute Continue on sliding scale.We will continue to monitor and adjust as necessary. Subjective Patient reports: no new complaints, feels better, pain is less, flatus, afebrile Narrative: The patient was seen and evaluated at bedside this morning. The patient was awake, alert, interactive, afebrile, and appears in no acute distress. Patient was sitting in the chair watching TV. Patient admits he feels good today. He admits he has got out of bed and into the chair multiple times for a few hours yesterday and tolerated it well. The patient admits he has been using his incentive spirometry but only about 6 times yesterday. The patient admits his abdomen is pot tender near this surgical incision especially when he bends over. However, the patient admits his pain is well controlled. The patient denies any fever, headaches, vision changes, chest pain, shortness of breath, difficulty breathing, urinary symptoms, numbness and tingling, and any weaknesses. Objective Vital Signs - Last 8 Hours Temp Pulse Resp BP Pulse Ox 07/19/17 04:42 98.3 F 68 16 133/81 92 07/19/17 00:40 97.8 F 70 16 131/75 96 Intake and Output 07/18/17 07/18/17 07/19/17 15:59 23:59 07:59 Intake Total 1000 / 1000 1000 / 1000 1000 / 1000 Output Total 220 / 220 520 / 520 860 / 860 Balance 780 / 780 480 / 480 140 / 140 Intake: IV Fluids 1000 / 999 1000 / 1000 1000 / 1000 0.9 % Sodium Chloride 1,000 ML 1000 / 1000 1000 / 1000 1000 / 1000 @ 125 mls/hr IVC .Q8H [facility] Rx#: [id number] Oral 0 / 0 Output: Catheter 200 / 200 500 / 500 850 / 850 Wound Drainage 20 20 20 / 20 10 / 10 Left Lower Abdomen 20 / 20 20 / 20 10 10 Other: Meal NPO Percent of Meal Consumed 0% Weight 102.535 kg Blood Glucose* 109 89 92 Patient Weight 07/19/17 23:59 Weight 102.535 kg - General physical appearance well developed, well nourished, no distress - Eyes PERRL, normal ocular movement - ENT normal mucosa - Neck Neck exam: trachea midline - Respiratory normal expansion, normal respiratory effort, clear to auscultation - Cardiovascular Cardiovascular exam: Present: RRR, no murmurs/rubs/gallops - Abdomen Abdomen: Present: bowel sounds present (Bowel sounds present in all 4 quadrants) , soft, tender (Appropriate post operative tenderness near surgical incision). Absent: rebound, rigid - Incision Incision: Present: clean and dry, intact. Absent: draining, purulent - Integumentary no rash - Neurologic CN 2-12 grossly intact - Psychiatric oriented to time, oriented to person, oriented to place - Labs 07/19/17 06:11 07/19/17 06:11 Diabetes panel 07/18/17 07/19/17 Range/Units 06:43 06:11 Sodium 138 138 (136-145) mEq/L Potassium 4.5 3.9 (3.5-5.1) mEq/L Chloride 109 H 108 H (98-107) mEq/L Carbon Dioxide 25 22 L (23-29) mEq/L BUN 13 10 (8-23) mg/dL Creatinine 0.96 0.73 (0.70-1.30) mg/dL Glucose 122 H 106 H (70-105) mg/dL Calcium 8.4 L 8.4 L (8.6-10.3) mg/dL Calcium panel 07/18/17 07/19/17 Range/Units 06:43 06:11 Calcium 8.4 L 8.4 L (8.6-10.3) mg/dL Pituitary panel 07/18/17 07/19/17 Range/Units 06:43 06:11 Sodium 138 138 (136-145) mEq/L Potassium 4.5 3.9 (3.5-5.1) mEq/L Chloride 109 H 108 H (98-107) mEq/L Carbon Dioxide 25 22 L (23-29) mEq/L BUN 13 10 (8-23) mg/dL Creatinine 0.96 0.73 (0.70-1.30) mg/dL Glucose 122 H 106 H (70-105) mg/dL Calcium 8.4 L 8.4 L (8.6-10.3) mg/dL Adrenal panel 07/18/17 07/19/17 Range/Units 06:43 06:11 Sodium 138 138 (136-145) mEq/L Potassium 4.5 3.9 (3.5-5.1) mEq/L Chloride 109 H 108 H (98-107) mEq/L Carbon Dioxide 25 22 L (23-29) mEq/L BUN 13 10 (8-23) mg/dL Creatinine 0.96 0.73 (0.70-1.30) mg/dL Glucose 122 H 106 H (70-105) mg/dL Calcium 8.4 L 8.4 L (8.6-10.3) mg/dL - VTE Documentation of Mechanical Device: Intermittent pneumatic compression device Consult Discharge Plan - Plan Instructions: Colectomy (DC), Colectomy (GEN) Additional Instructions: 1. No pushing, pulling, or lifting greater than 15 lbs for 4 weeks (depending upon procedure). 2. You may shower beginning today, but no tub baths, soaking, or swimming for 2 weeks. 3. You may resume driving when you are off narcotics and are safe to react in a car. 4. Take ibuprofen every 8 hours for discomfort. If this does not relieve discomfort, you may take the as needed Percocet. Take narcotics as directed. Do not take more narcotics then directed and do not share your narcotics with any other person. Do not drink alcohol while on narcotics. 5. Take stool softeners (Colace) or a water based laxative (Miralax) while taking narcotics. You may hold for loose stools. 6. Report any fevers greater than 100.5F, increase abdominal discomfort, drainage that looks like pus, increased redness or pain at the surgical site, or any vomiting. 7. Report any pain in the calves, shortness of breath, or rapid heartbeat. 8. Follow-up in the office as directed. 9. If you were prescribed antibiotics, do not stop them without talking to your provider. Referrals: Junior Marquis MD [Partnered Physician] - 07/29/17 4:25 pm Prescriptions: Ibuprofen [Motrin] 600 mg PO Q8HR PRN #30 tab PRN Reason: Pain Docusate [Colace] 100 mg PO BID PRN #30 capsule PRN Reason: Constipation Oxycodone HCl/Acetaminophen [Percocet 10-325 mg Tablet] 1 each PO Q6-8H PRN 6 Days #24 tablet PRN Reason: Pain <Tito Wright - Last Filed: 07/21/17 12:23> Date of Encounter: 07/19/17 Objective - Labs 07/20/17 06:39 07/20/17 06:39 - Attending Attestation I examined this patient and my medical decision-making was reviewed with the Resident Physician. I agree with the documented findings, disposition and treatment plan as described except to the extent set forth below. The patient is seen and evaluated on morning rounds with the resident. He continues to make excellent progress and we will advance his diet today. We should be able to discharge him tomorrow morning if he continues to improve. Continue supportive care Tito Wright MD FACS
[2017-07-19 07:55] LABS: Basophils % 0.4 %; Eosinophils # 0.3 K/mcL (0.0-0.6); Eosinophils % 4.4 %; Hematocrit 36.2 % (37.5-50.1); Hemoglobin 11.2 g/dL (12.9-16.9); Immature Granulocytes % 0.3 % (0-4); Mean Corpuscular HGB Conc 30.9 g/dL (31.6-35.5); Mean Corpuscular Volume 87.2 fL (83.0-100.0); Mean Platelet Volume 11.9 fL (9.4-12.4); Monocytes # 0.6 K/mcL (0.0-1.3); Neutrophils # 4.9 K/mcL (1.6-8.9); Platelet Count 140 K/mcL (140-400); Red Blood Count 4.15 M/mcL (4.19-5.50); Red Cell Distribution Width 14.4 % (11.5-14.5); Segmented Neutrophils % 70.9 %
[2017-07-19] MEDS: Pantoprazole 40 MG VIAL IVP SCH (09:18)
[2017-07-19] MEDS: OXYCODONE Oral CONC 10 MG/0.5 ML ORAL.SYG SL PRN (13:29)
[2017-07-19] MEDS: *HR* FentaNYL PATCH 25 MCG PATCH TD SCH (19:59)
[2017-07-19] MEDS ORDERED: Insulin LISPRO 300 UNITS/3 ML VIAL SQ SCH (21:00)
[2017-07-20] MEDS: *HR* Metoprolol 5 MG/5 ML VIAL IVP SCH ×3 (00:10→13:24)
[2017-07-20 04:10] VITALS: BP 124/85
[2017-07-20] MEDS: *HR* Heparin 5,000 UNIT/ML VIAL SQ SCH (05:20)
[2017-07-20 07:04] LABS: Basophils % 0.3 %; Eosinophils # 0.6 K/mcL (0.0-0.6); Eosinophils % 9.2 %; Hematocrit 37.2 % (37.5-50.1); Hemoglobin 11.9 g/dL (12.9-16.9); Immature Granulocytes % 0.3 % (0-4); Mean Corpuscular Hemoglobin 27.5 pg (28.0-33.3); Mean Corpuscular Volume 85.9 fL (83.0-100.0); Mean Platelet Volume 11.2 fL (9.4-12.4); Monocytes # 0.5 K/mcL (0.0-1.3); Platelet Count 170 K/mcL (140-400); Red Blood Count 4.33 M/mcL (4.19-5.50); Red Cell Distribution Width 14.1 % (11.5-14.5); Segmented Neutrophils % 66.2 %
[2017-07-20 07:18] LABS: BUN/Creatinine Ratio 11 (6-26); Blood Urea Nitrogen 9 mg/dL (8-23); Calcium 8.6 mg/dL (8.6-10.3); Carbon Dioxide 26 mEq/L (23-29); Chloride 106 mEq/L (98-107); Glucose 134 mg/dL (70-105); Osmolality,Calculated 285 (280-300); Potassium 3.5 mEq/L (3.5-5.1); Sodium 137 mEq/L (136-145); eGFR For African Americans > 60 (> 60); eGFR For Non-African Americans > 60 (> 60)
[2017-07-20] MEDS: Insulin LISPRO 300 UNITS/3 ML VIAL SQ SCH ×2 (09:00→13:17)
[2017-07-20] MEDS: Pantoprazole 40 MG VIAL IVP SCH (09:02)
--- NOTE | 2017-07-20 09:07 | General Surgery Progress Note ---
<Rita Guevara-Andreia - Last Filed: 07/20/17 14:47> Date of Encounter: 07/20/17 Time of Encounter: 08:00 - Assessment and Plan (1) Rectal adenocarcinoma Status: Acute Postoperative day #4 Low anterior resection with Dr. Marquis Pathology reports describes pathological stage as ypT2, pN0 (stage I). Low grade adenocarcinoma without any lymph node invasion. Advance to regular diet. Reassess the patient at 3 PM. If the patient tolerates his diet without any nausea vomiting, plan to discharge today. Bowel functions are slowly returning. BSx4. Bowel movements with soft, nonbloody stools. IV fluids IV antibiotics- Cefoxitin Out of bed to chair and ambulate with assistance 3 times a day Incentive spirometer every 1 hour while awake GI prophylaxis Discontinue Aragon Discontinue ALYSSA drain (2) DVT prophylaxis Status: Acute Heparin 5000 units subcutaneous twice daily for DVT prophylaxis Intermittent compression stockings to bilateral lower extremities for DVT prophylaxis Ambulate hallways 3 times a day with assistance (3) Hyperglycemia Status: Acute Continue on sliding scale.We will continue to monitor and adjust as necessary. Subjective Patient reports: no new complaints, feels better (Admits intermittent "gas pains " prior to exam but denies any at this time. ), pain is less, tolerating liquids well (tolerating clear liquid diet well), flatus, bowel movement ( Admits one bowel movement this morning. Stools were soft without any blood. ), afebrile Objective Vital Signs - Last 8 Hours Temp Pulse Resp BP Pulse Ox 07/20/17 04:05 98.1 F 64 15 124/85 96 Intake and Output 07/19/17 07/20/17 07/20/17 23:59 07:59 15:59 Intake Total 240 / 240 Output Total 330 / 330 30 / 30 Balance -90 / -90 -30 / -30 Intake: Oral 240 / 240 Output: Urine 250 / 250 Wound Drainage 80 / 80 30 / 30 Left Lower Abdomen 80 / 80 30 / 30 Other: Meal Dinner Percent of Meal Consumed 100% # Voids 1 1 Weight 103.43 kg Blood Glucose* 150 - General physical appearance well developed, well nourished, no distress - Eyes PERRL, normal ocular movement - ENT normal mucosa - Neck Neck exam: trachea midline - Respiratory normal expansion, normal respiratory effort, clear to auscultation - Cardiovascular Cardiovascular exam: Present: RRR, no murmurs/rubs/gallops - Abdomen Abdomen: Present: bowel sounds present, soft, tender (Appropriate postoperative tenderness near his surgical incision.). Absent: distended, guarding, rebound Hernia: none Additional Comments: ALYSSA drain with serosanguineous fluid. No evidence of purulent drainage - Incision Incision: Present: clean and dry, intact. Absent: draining, red, purulent - Integumentary no rash - Neurologic CN 2-12 grossly intact - Psychiatric oriented to time, oriented to person, oriented to place - Labs 07/20/17 06:39 07/20/17 06:39 Diabetes panel 07/20/17 Range/Units 06:39 Sodium 137 (136-145) mEq/L Potassium 3.5 (3.5-5.1) mEq/L Chloride 106 (98-107) mEq/L Carbon Dioxide 26 (23-29) mEq/L BUN 9 (8-23) mg/dL Creatinine 0.79 (0.70-1.30) mg/dL Glucose 134 H (70-105) mg/dL Calcium 8.6 (8.6-10.3) mg/dL Calcium panel 07/20/17 Range/Units 06:39 Calcium 8.6 (8.6-10.3) mg/dL Pituitary panel 07/20/17 Range/Units 06:39 Sodium 137 (136-145) mEq/L Potassium 3.5 (3.5-5.1) mEq/L Chloride 106 (98-107) mEq/L Carbon Dioxide 26 (23-29) mEq/L BUN 9 (8-23) mg/dL Creatinine 0.79 (0.70-1.30) mg/dL Glucose 134 H (70-105) mg/dL Calcium 8.6 (8.6-10.3) mg/dL Adrenal panel 07/20/17 Range/Units 06:39 Sodium 137 (136-145) mEq/L Potassium 3.5 (3.5-5.1) mEq/L Chloride 106 (98-107) mEq/L Carbon Dioxide 26 (23-29) mEq/L BUN 9 (8-23) mg/dL Creatinine 0.79 (0.70-1.30) mg/dL Glucose 134 H (70-105) mg/dL Calcium 8.6 (8.6-10.3) mg/dL - VTE Documentation of Mechanical Device: Intermittent pneumatic compression device Consult Discharge Plan - Plan Instructions: Colectomy (DC), Colectomy (GEN) Additional Instructions: 1. No pushing, pulling, or lifting greater than 15 lbs for 4 weeks (depending upon procedure). 2. You may shower beginning today, but no tub baths, soaking, or swimming for 2 weeks. 3. You may resume driving when you are off narcotics and are safe to react in a car. 4. Take ibuprofen every 8 hours for discomfort. If this does not relieve discomfort, you may take the as needed Percocet. Take narcotics as directed. Do not take more narcotics then directed and do not share your narcotics with any other person. Do not drink alcohol while on narcotics. 5. Take stool softeners (Colace) or a water based laxative (Miralax) while taking narcotics. You may hold for loose stools. 6. Report any fevers greater than 100.5F, increase abdominal discomfort, drainage that looks like pus, increased redness or pain at the surgical site, or any vomiting. 7. Report any pain in the calves, shortness of breath, or rapid heartbeat. 8. Follow-up in the office as directed. 9. If you were prescribed antibiotics, do not stop them without talking to your provider. Referrals: Junior Marquis MD [Partnered Physician] - 07/29/17 4:25 pm Prescriptions: Ibuprofen [Motrin] 600 mg PO Q8HR PRN #30 tab PRN Reason: Pain Docusate [Colace] 100 mg PO BID PRN #30 capsule PRN Reason: Constipation Oxycodone HCl/Acetaminophen [Percocet 10-325 mg Tablet] 1 each PO Q6-8H PRN 6 Days #24 tablet PRN Reason: Pain <Adriana,Tito T - Last Filed: 07/21/17 12:32> Date of Encounter: 07/20/17 Objective - Labs 07/20/17 06:39 07/20/17 06:39 - Attending Attestation I examined this patient and my medical decision-making was reviewed with the Resident Physician. I agree with the documented findings, disposition and treatment plan as described except to the extent set forth below. The patient is seen and evaluated on morning rounds with the resident. He is doing quite well and having bowel movements. He is tolerating regular diet. He is ready for discharge. He will be seen in follow-up by Dr. Marquis in the office. Discharge today. Tito Wright MD FACS
--- NOTE | 2017-07-20 15:48 | Discharge Summary ---
<Taryn Guevara - Last Filed: 07/20/17 15:42> Date of Encounter: 07/20/17 Time of Encounter: 16:14 - Discharge Diagnosis (1) Rectal adenocarcinoma Priority: Primary Status: Acute (2) DVT prophylaxis Priority: Secondary Status: Acute (3) Hyperglycemia Priority: Secondary Status: Acute General Surgery Exam Initial Vital Signs Temp Pulse Resp BP Pulse Ox 97.8 F 71 18 129/82 97 07/16/17 10:01 07/16/17 10:01 07/16/17 10:01 07/16/17 10:01 07/16/17 10:01 - General physical appearance well developed, well nourished, no distress - Eyes PERRL, normal ocular movement - ENT normal mucosa - Neck trachea midline - Respiratory normal expansion, normal respiratory effort, clear to auscultation - Cardiovascular Cardiovascular exam: Present: RRR, no murmurs/rubs/gallops - Abdomen Abdomen general surgery: Present: bowel sounds present, soft, tender ( Appropriate postoperative tenderness near his surgical incision.). Absent: distended, guarding, rebound, rigid Hernia: Present: none - Incision Incision: Present: clean and dry (ALYSSA drain with serosanguineous fluid. No evidence of purulent drainage. ALYSSA drain removed without any complications. ), intact. Absent: draining, purulent - Integumentary Integumentary general surgery: Present: warm and dry - Neurologic Present: CN 2-12 grossly intact, normal coordination - Psychiatric Psychiatric general surgery: Present: oriented to person, oriented to place, oriented to time - Hospital Course Hospital course: Mr. Mondragon is a 62 year old male who presented to Dr. Marquis for a low anterior resection due to his low grade adenocarcinoma. Surgery was conducted on July by Dr. Marquis. Per note, the patient tolerated procedure well. The patient now has bowel functions. Patient is passing gas, bowel sounds are heard in all 4 quadrants, bowel movements was soft and non-bloody stools, and patient is tolerating a regular diet without difficulty, nausea, and vomiting. Pathology reports biopsy is a low grade adenocarcinoma and describes the pathological stages as ypT2, pN0 (stage I). Patient is afebrile, alert, and in no acute distress. Patient has no other concerns at this time. Patient is instructed to follow-up with outpatient clinic. Patient demonstrates verbal understanding. - Time Spent with Patient Total time spent providing and/or coordinating discharge services: - Discharge Medications Prescriptions: Ibuprofen [Motrin] 600 mg PO Q8HR PRN #30 tab PRN Reason: Pain Docusate [Colace] 100 mg PO BID PRN #30 capsule PRN Reason: Constipation Oxycodone HCl/Acetaminophen [Percocet 10-325 mg Tablet] 1 each PO Q6-8H PRN 6 Days #24 tablet PRN Reason: Pain Home Medications: Furosemide [Lasix] 20 mg PO DAILY 02/12/17 [History] Iron Ps Cmplx/Vit B12/FA [Iferex 150 Forte Capsule] 150 mg PO DAILY 02/12/17 [ History] metFORMIN [Glucophage] 500 mg PO BID 02/12/17 [History] Aspirin Enteric Coated [Aspirin EC] 81 mg PO DAILY 03/21/17 [History] Lisinopril [Zestril] 10 mg PO DAILY 03/21/17 [History] Metoprolol [Lopressor] 50 mg PO BID 03/21/17 [History] Rosuvastatin [Crestor] 40 mg PO Q48H 03/21/17 [History] Docusate [Colace] 100 mg PO BID PRN #30 capsule 07/20/17 [Rx] Ibuprofen [Motrin] 600 mg PO Q8HR PRN #30 tab 07/20/17 [Rx] Oxycodone HCl/Acetaminophen [Percocet 10-325 mg Tablet] 1 each PO Q6-8H PRN 6 Days #24 tablet 07/20/17 [Rx] Allergies/Adverse Reactions: 3 Allergy/AdvReac Type Severity Reaction Status Date / Time No Known Allergies Allergy Verified 07/16/17 10:33 Date of admission: 07/16/17 19:20 Primary care physician: Amadeo Espitia MD Discharging clinician: Taryn Guevara Anticipated date of discharge: 07/20/17 Labs on day of discharge: Labs from last 24 hours 07/20/17 07/20/17 07/20/17 12:08 06:39 06:39 WBC 6.0 RBC 4.33 Hgb 11.9 L Hct 37.2 L MCV 85.9 MCH 27.5 L MCHC 32.0 RDW 14.1 Plt Count 170 MPV 11.2 Immature Gran % 0.3 Seg Neutrophils % 66.2 Lymphocytes % 16.0 Monocytes % 8.0 Eosinophils % 9.2 Basophils % 0.3 Neutrophils # 4.0 Lymphocytes # 1.0 Monocytes # 0.5 Eosinophils # 0.6 Basophils # 0.0 Sodium 137 Potassium 3.5 Chloride 106 Carbon Dioxide 26 BUN 9 Creatinine 0.79 Est GFR ( Amer) > 60 Est GFR (Non-Af Amer) > 60 BUN/Creatinine Ratio 11 Glucose 134 H POC Glucose 132 H Calculated Osmolality 285 Calcium 8.6 - Patient Status Disposition: Home, Self-Care Condition: Good Functional capacity at discharge: independent ambulation Overall status at discharge: patient is progressing back to baseline - Discharge Instructions Instructions: Colectomy (DC), Colectomy (GEN) Follow Up With: Junior Marquis MD [Partnered Physician] - 07/29/17 4:25 pm Additional Instructions: 1. No pushing, pulling, or lifting greater than 15 lbs for 4 weeks (depending upon procedure). 2. You may shower beginning today, but no tub baths, soaking, or swimming for 2 weeks. 3. You may resume driving when you are off narcotics and are safe to react in a car. 4. Take ibuprofen every 8 hours for discomfort. If this does not relieve discomfort, you may take the as needed Percocet. Take narcotics as directed. Do not take more narcotics then directed and do not share your narcotics with any other person. Do not drink alcohol while on narcotics. 5. Take stool softeners (Colace) or a water based laxative (Miralax) while taking narcotics. You may hold for loose stools. 6. Report any fevers greater than 100.5F, increase abdominal discomfort, drainage that looks like pus, increased redness or pain at the surgical site, or any vomiting. 7. Report any pain in the calves, shortness of breath, or rapid heartbeat. 8. Follow-up in the office as directed. 9. If you were prescribed antibiotics, do not stop them without talking to your provider. - Diet and Activity Activity: increase activity as tolerated Diet: advance to your usual diet <Tito Wright - Last Filed: 07/21/17 13:10> Date of Encounter: 07/20/17 General Surgery Exam Initial Vital Signs Temp Pulse Resp BP Pulse Ox 97.8 F 71 18 129/82 97 07/16/17 10:01 07/16/17 10:01 07/16/17 10:01 07/16/17 10:01 07/16/17 10:01 - Hospital Course Hospital course: Mr. Mondragon is a 62 year old male - Time Spent with Patient Total time spent providing and/or coordinating discharge services: Date of admission: 07/16/17 19:20 Primary care physician: Amadeo Espitia MD Labs on day of discharge: Labs from last 24 hours 07/20/17 07/19/17 07/19/17 08:56 19:55 15:44 POC Glucose 130 H 150 H 109 H - Attending Attestation I examined this patient and my medical decision-making was reviewed with the Resident Physician. I agree with the documented findings, disposition and treatment plan as described except to the extent set forth below. The patient is seen and evaluated with rest and on morning rounds. He is having bowel movements and tolerating regular diet. Ready for discharge.
== END 2017-07-20 18:52 | disposition home or self-care (01) | DRG 331 ==
LOC: SAMDAY 09:39 → 3ANU 19:20
PROVIDERS: ADMIT Surgery; ATTEND Surgery

== ENCOUNTER 2020-05-30 09:41 | Inpatient (IN) ==
[2020-05-30] MEDS: DilTIAZem 50 MG/50 ML IV.SOLN IVC SCH (13:11)
[2020-05-30] MEDS ORDERED: Perflutren Lipid Microsphere 1.3 ML in 0.9 % Sodium Chloride 8.7 ML IVP PRN (13:23)
[2020-05-30] MEDS ORDERED: Ondansetron 4 MG/2 ML VIAL IVP PRN (13:29)
[2020-05-30 13:52] LABS: Basophils % 0.4 %; Eosinophils % 0.5 %; Hemoglobin 12.5 g/dL (12.9-16.9); Immature Granulocytes % 0.4 % (0-4); Lymphocytes # 1.7 K/mcL (0.6-4.6); Lymphocytes % 20.6 %; Mean Corpuscular HGB Conc 31.3 g/dL (31.6-35.5); Mean Corpuscular Hemoglobin 27.7 pg (28.0-33.3); Mean Corpuscular Volume 88.7 fL (83.0-100.0); Mean Platelet Volume 10.9 fL (9.4-12.4); Monocytes # 0.5 K/mcL (0.0-1.3); Monocytes % 6.3 %; Neutrophils # 5.8 K/mcL (1.6-8.9); Platelet Count 222 K/mcL (140-400); Red Blood Count 4.51 M/mcL (4.19-5.50); Red Cell Distribution Width 13.9 % (11.5-14.5); Segmented Neutrophils % 71.8 %; White Blood Count 8.1 K/mcL (4.3-11.1)
[2020-05-30 14:04] LABS: BUN/Creatinine Ratio 17 (6-26); Blood Urea Nitrogen 17 mg/dL (8-23); Calcium 9.2 mg/dL (8.6-10.3); Carbon Dioxide 30 mEq/L (23-29); Chloride 104 mEq/L (98-107); Glucose 199 mg/dL (70-105); Magnesium 1.7 mg/dL (1.6-2.6); Osmolality,Calculated 299 (280-300); Potassium 3.6 mEq/L (3.5-5.1); Sodium 141 mEq/L (136-145); eGFR For African Americans > 60 (> 60); eGFR For Non-African Americans > 60 (> 60)
[2020-05-30] MEDS: *HR* Enoxaparin 100 MG/ML SYRINGE SQ SCH (16:24)
[2020-05-30] MEDS: Furosemide 40 MG/4 ML VIAL IVP SCH (16:24)
[2020-05-30] MEDS ORDERED: Albuterol 2.5 MG/3 ML NEBULIZER IH PRN (22:53)
[2020-05-30] MEDS ORDERED: Albuterol 2.5 MG/3 ML NEBULIZER ONE (23:17)
[2020-05-31] MEDS: *HR* Enoxaparin 100 MG/ML SYRINGE SQ SCH ×2 (05:39→16:38)
[2020-05-31] MEDS: Furosemide 40 MG/4 ML VIAL IVP SCH ×2 (07:43→16:37)
[2020-05-31] MEDS: Aspirin Enteric Coated 81 MG Tablet PO SCH (07:43)
[2020-05-31 08:25] LABS: Basophils % 0.5 %; Eosinophils # 0.1 K/mcL (0.0-0.6); Eosinophils % 1.3 %; Hematocrit 40.9 % (37.5-50.1); Hemoglobin 12.3 g/dL (12.9-16.9); Immature Granulocytes % 0.3 % (0-4); Lymphocytes # 1.4 K/mcL (0.6-4.6); Lymphocytes % 18.2 %; Mean Corpuscular HGB Conc 30.1 g/dL (31.6-35.5); Mean Corpuscular Volume 89.9 fL (83.0-100.0); Monocytes # 0.5 K/mcL (0.0-1.3); Monocytes % 6.7 %; Neutrophils # 5.8 K/mcL (1.6-8.9); Platelet Count 228 K/mcL (140-400); Red Blood Count 4.55 M/mcL (4.19-5.50); Red Cell Distribution Width 13.9 % (11.5-14.5); White Blood Count 7.9 K/mcL (4.3-11.1)
[2020-05-31 08:47] LABS: BUN/Creatinine Ratio 20 (6-26); Blood Urea Nitrogen 24 mg/dL (8-23); Carbon Dioxide 28 mEq/L (23-29); Chloride 103 mEq/L (98-107); Glucose 237 mg/dL (70-105); Osmolality,Calculated 298 (280-300); Sodium 138 mEq/L (136-145); eGFR For African Americans > 60 (> 60); eGFR For Non-African Americans > 60 (> 60)
[2020-05-31] MEDS: Acetaminophen 325 MG TABLET PO PRN ×2 (13:21→19:52)
[2020-05-31] MEDS ORDERED: Dextrose Gel 15 GM/37.5 ML TUBE PO PRN ×2 (13:56)
[2020-05-31] MEDS ORDERED: *HR* Dextrose 50 % in Water (Vial) 50 ML VIAL IVP PRN (13:56)
[2020-05-31] MEDS ORDERED: D5% in Water 1,000 ML IVC PRN (13:56)
[2020-05-31 13:58] LABS: C-Reactive Protein 22 mg/L (Less than 10)
[2020-05-31 14:11] LABS: Estimated Average Glucose 280 mg/dl; Hemoglobin A1C 11.4 %
[2020-05-31] MEDS: Insulin LISPRO 300 UNITS/3 ML VIAL SUBQ SCH ×2 (16:38→20:42)
[2020-05-31] MEDS ORDERED: *HR* Metoprolol 5 MG/5 ML VIAL IVP PRN (17:17)
[2020-05-31] MEDS: DilTIAZem 50 MG/50 ML IV.SOLN IVC SCH (19:06)
[2020-05-31] MEDS ORDERED: Ibuprofen 400 MG TABLET PO ONE (22:09)
[2020-06-01] MEDS: *HR* Enoxaparin 100 MG/ML SYRINGE SQ SCH ×2 (05:29→16:20)
[2020-06-01 06:16] LABS: Hematocrit 39.2 % (37.5-50.1); Hemoglobin 11.9 g/dL (12.9-16.9); Mean Corpuscular HGB Conc 30.4 g/dL (31.6-35.5); Mean Corpuscular Hemoglobin 27.8 pg (28.0-33.3); Mean Corpuscular Volume 91.6 fL (83.0-100.0); Platelet Count 201 K/mcL (140-400); Red Blood Count 4.28 M/mcL (4.19-5.50); Red Cell Distribution Width 13.7 % (11.5-14.5); White Blood Count 7.9 K/mcL (4.3-11.1)
[2020-06-01 06:39] LABS: BUN/Creatinine Ratio 25 (6-26); Blood Urea Nitrogen 30 mg/dL (8-23); Carbon Dioxide 29 mEq/L (23-29); Chloride 102 mEq/L (98-107); Glucose 228 mg/dL (70-105); Magnesium 1.8 mg/dL (1.6-2.6); Osmolality,Calculated 299 (280-300); Phosphorous 4.3 mg/dL (2.7-4.5); Potassium 4.2 mEq/L (3.5-5.1); Sodium 138 mEq/L (136-145); eGFR For African Americans > 60 (> 60); eGFR For Non-African Americans > 60 (> 60)
[2020-06-01] MEDS: Furosemide 40 MG/4 ML VIAL IVP SCH ×2 (08:54→16:19)
[2020-06-01] MEDS: Aspirin Enteric Coated 81 MG Tablet PO SCH (08:54)
[2020-06-01] MEDS: Insulin LISPRO 300 UNITS/3 ML VIAL SUBQ SCH ×4 (08:55→21:11)
[2020-06-01] MEDS: Acetaminophen 325 MG TABLET PO PRN (17:29)
[2020-06-01] MEDS: Gabapentin 300 MG CAPSULE PO SCH (21:08)
[2020-06-01] MEDS: Metoprolol XL (24 HR) Succ 50 MG TAB.ER.24H PO SCH (21:08)
[2020-06-02 01:27] LABS: Basophils % 0.6 %; Eosinophils # 0.1 K/mcL (0.0-0.6); Eosinophils % 2.2 %; Hematocrit 38.5 % (37.5-50.1); Hemoglobin 11.8 g/dL (12.9-16.9); Immature Granulocytes % 0.3 % (0-4); Lymphocytes # 1.5 K/mcL (0.6-4.6); Lymphocytes % 22.8 %; Mean Corpuscular HGB Conc 30.6 g/dL (31.6-35.5); Mean Corpuscular Hemoglobin 27.7 pg (28.0-33.3); Mean Corpuscular Volume 90.4 fL (83.0-100.0); Mean Platelet Volume 11.3 fL (9.4-12.4); Monocytes # 0.5 K/mcL (0.0-1.3); Neutrophils # 4.3 K/mcL (1.6-8.9); Platelet Count 204 K/mcL (140-400); Red Blood Count 4.26 M/mcL (4.19-5.50); Red Cell Distribution Width 13.6 % (11.5-14.5); Segmented Neutrophils % 66.1 %; White Blood Count 6.5 K/mcL (4.3-11.1)
[2020-06-02 01:46] LABS: BUN/Creatinine Ratio 27 (6-26); Blood Urea Nitrogen 30 mg/dL (8-23); Calcium 9.1 mg/dL (8.6-10.3); Carbon Dioxide 30 mEq/L (23-29); Chloride 101 mEq/L (98-107); Glucose 306 mg/dL (70-105); Magnesium 1.9 mg/dL (1.6-2.6); Osmolality,Calculated 304 (280-300); Phosphorous 4.3 mg/dL (2.7-4.5); Potassium 3.7 mEq/L (3.5-5.1); Sodium 138 mEq/L (136-145); eGFR For African Americans > 60 (> 60); eGFR For Non-African Americans > 60 (> 60)
[2020-06-02] MEDS: Acetaminophen 325 MG TABLET PO PRN ×3 (05:04→19:36)
[2020-06-02] MEDS: *HR* Enoxaparin 100 MG/ML SYRINGE SQ SCH ×2 (05:04→16:34)
[2020-06-02] MEDS: Metoprolol XL (24 HR) Succ 50 MG TAB.ER.24H PO SCH ×2 (08:19→20:30)
[2020-06-02] MEDS: Insulin LISPRO 300 UNITS/3 ML VIAL SUBQ SCH ×4 (08:19→20:30)
[2020-06-02] MEDS: Aspirin Enteric Coated 81 MG Tablet PO SCH (08:20)
[2020-06-02] MEDS: Furosemide 40 MG/4 ML VIAL IVP SCH ×2 (08:20→16:34)
[2020-06-02] MEDS ORDERED: GI Cocktail 40 ML EACH PO ONE (15:30)
[2020-06-02] MEDS: Gabapentin 300 MG CAPSULE PO SCH (20:30)
[2020-06-03 05:21] LABS: Basophils % 0.4 %; Eosinophils # 0.1 K/mcL (0.0-0.6); Eosinophils % 1.8 %; Hematocrit 37.6 % (37.5-50.1); Hemoglobin 11.6 g/dL (12.9-16.9); Immature Granulocytes % 0.3 % (0-4); Lymphocytes # 1.5 K/mcL (0.6-4.6); Lymphocytes % 21.9 %; Mean Corpuscular HGB Conc 30.9 g/dL (31.6-35.5); Mean Corpuscular Hemoglobin 27.9 pg (28.0-33.3); Mean Corpuscular Volume 90.4 fL (83.0-100.0); Mean Platelet Volume 11.4 fL (9.4-12.4); Monocytes # 0.7 K/mcL (0.0-1.3); Monocytes % 9.7 %; Neutrophils # 4.4 K/mcL (1.6-8.9); Platelet Count 200 K/mcL (140-400); Red Blood Count 4.16 M/mcL (4.19-5.50); Red Cell Distribution Width 13.6 % (11.5-14.5); Segmented Neutrophils % 65.9 %; White Blood Count 6.7 K/mcL (4.3-11.1)
[2020-06-03 05:41] LABS: BUN/Creatinine Ratio 23 (6-26); Blood Urea Nitrogen 27 mg/dL (8-23); Calcium 9.4 mg/dL (8.6-10.3); Carbon Dioxide 33 mEq/L (23-29); Chloride 101 mEq/L (98-107); Glucose 228 mg/dL (70-105); Osmolality,Calculated 302 (280-300); Potassium 3.7 mEq/L (3.5-5.1); Sodium 140 mEq/L (136-145); eGFR For African Americans > 60 (> 60); eGFR For Non-African Americans > 60 (> 60)
[2020-06-03] MEDS: Aspirin Enteric Coated 81 MG Tablet PO SCH (07:45)
[2020-06-03] MEDS: Furosemide 40 MG/4 ML VIAL IVP SCH (07:45)
[2020-06-03] MEDS: Metoprolol XL (24 HR) Succ 50 MG TAB.ER.24H PO SCH ×2 (07:45→21:17)
[2020-06-03] MEDS: Insulin LISPRO 300 UNITS/3 ML VIAL SUBQ SCH ×4 (07:46→21:17)
[2020-06-03] MEDS ORDERED: Heparin 1,000 UNITS/500 mL 500 ML ONE (10:39)
[2020-06-03] MEDS ORDERED: 0.9 % Sodium Chloride 2,000 ML ONE (10:39)
[2020-06-03] MEDS ORDERED: Nitroglycerin 1,000 MCG/10 ML VIAL IV ONE (10:40)
[2020-06-03] MEDS ORDERED: *HR* Heparin 10,000 UNIT/10 ML VIAL ONE (10:40)
[2020-06-03] MEDS ORDERED: ISOVUE-370 200 ML INFUS..BTL ONE (10:40)
[2020-06-03] MEDS ORDERED: *HR* Midazolam HCl 2 MG/2 ML VIAL ONE (10:58)
[2020-06-03] MEDS ORDERED: *HR* FentaNYL (PF) 100 MCG/2 ML VIAL ONE (10:58)
[2020-06-03] MEDS: Gabapentin 300 MG CAPSULE PO SCH (21:16)
[2020-06-03] MEDS: Apixaban 5 MG TABLET PO SCH (21:16)
[2020-06-04] MEDS: Insulin LISPRO 300 UNITS/3 ML VIAL SUBQ SCH (08:17)
[2020-06-04] MEDS: Aspirin Enteric Coated 81 MG Tablet PO SCH (08:17)
[2020-06-04] MEDS: Metoprolol XL (24 HR) Succ 50 MG TAB.ER.24H PO SCH (08:18)
[2020-06-04] MEDS: Apixaban 5 MG TABLET PO SCH (08:18)
[2020-06-04 08:40] VITALS: BP 121/77
[2020-06-04] MEDS ORDERED: Furosemide 20 MG TABLET PO SCH (09:00)
[2020-06-04] MEDS ORDERED: lisinopriL 5 MG TABLET PO SCH (09:15)
[2020-06-05] MEDS ORDERED: Furosemide 20 MG TABLET PO SCH (09:00)
== END 2020-06-04 10:34 | disposition home or self-care (01) | DRG 264 ==
LOC: 2ANU → SUATTDRO 12:05
PROVIDERS: ADMIT Internal Medicine; ATTEND Family Medicine

== ENCOUNTER 2020-06-26 22:25 | Observation (INO) ==
[2020-06-27] MEDS ORDERED: Naloxone 0.4 MG/ML INJ IVP PRN (01:28)
[2020-06-27] MEDS ORDERED: DilTIAZem 50 MG/50 ML IV.SOLN IVC SCH (02:00)
[2020-06-27 04:54] LABS: Basophils % 0.6 %; Eosinophils # 0.1 K/mcL (0.0-0.6); Eosinophils % 1.5 %; Hematocrit 38.3 % (37.5-50.1); Hemoglobin 11.8 g/dL (12.9-16.9); Immature Granulocytes % 0.3 % (0-4); Lymphocytes # 2.1 K/mcL (0.6-4.6); Lymphocytes % 30.4 %; Mean Corpuscular HGB Conc 30.8 g/dL (31.6-35.5); Mean Corpuscular Hemoglobin 26.6 pg (28.0-33.3); Mean Corpuscular Volume 86.3 fL (83.0-100.0); Mean Platelet Volume 10.9 fL (9.4-12.4); Monocytes # 0.6 K/mcL (0.0-1.3); Monocytes % 8.4 %; Platelet Count 189 K/mcL (140-400); Red Blood Count 4.44 M/mcL (4.19-5.50); Red Cell Distribution Width 14.2 % (11.5-14.5); Segmented Neutrophils % 58.8 %; White Blood Count 6.8 K/mcL (4.3-11.1)
[2020-06-27 04:55] LABS: INR 1.6; Prothrombin Time 18.5 Seconds (9.4-12.1)
[2020-06-27 04:58] LABS: Activated Partial Thrombo Time 35.4 Seconds (26.0-36.0)
[2020-06-27 05:12] LABS: Alanine Aminotransferase 8 Units/L (7-52); Albumin 3.5 g/dL (3.5-5.7); Albumin/Globulin Ratio 1.1 (1.1-2.2); Alkaline Phosphatase 65 Units/L (34-104); Aspartate Amino Transferase 8 Units/L (13-39); BUN/Creatinine Ratio 23 (6-26); Bilirubin,Total 0.7 mg/dL (0.3-1.0); Blood Urea Nitrogen 24 mg/dL (8-23); Calcium 9.4 mg/dL (8.6-10.3); Carbon Dioxide 25 mEq/L (23-29); Chloride 104 mEq/L (98-107); Globulin 3.3 g/dL (2.4-3.5); Glucose 273 mg/dL (70-105); Magnesium 2.2 mg/dL (1.6-2.6); Osmolality,Calculated 298 (280-300); Phosphorous 3.7 mg/dL (2.7-4.5); Potassium 4.1 mEq/L (3.5-5.1); Sodium 137 mEq/L (136-145); Total Protein 6.8 g/dL (6.4-8.9); eGFR For African Americans > 60 (> 60); eGFR For Non-African Americans > 60 (> 60)
[2020-06-27 05:17] LABS: Troponin I 0.08 ng/mL (< 0.04)
[2020-06-27] MEDS ORDERED: Dextrose Gel 15 GM/37.5 ML TUBE PO PRN ×2 (07:02)
[2020-06-27] MEDS ORDERED: *HR* Dextrose 50 % in Water (Vial) 50 ML VIAL IVP PRN (07:02)
[2020-06-27] MEDS ORDERED: D5% in Water 1,000 ML IVC PRN (07:02)
[2020-06-27] MEDS ORDERED: Insulin LISPRO 300 UNITS/3 ML VIAL SUBQ SCH ×4 (07:30→21:00)
[2020-06-27] MEDS: Aspirin Enteric Coated 81 MG Tablet PO SCH (08:35)
[2020-06-27] MEDS: Apixaban 5 MG TABLET PO SCH ×2 (08:35→21:55)
[2020-06-27] MEDS ORDERED: Furosemide 40 MG/4 ML VIAL IVP SCH (09:00)
[2020-06-27] MEDS: Metoprolol XL (24 HR) Succ 50 MG TAB.ER.24H PO SCH ×2 (09:25→21:55)
[2020-06-27 11:19] LABS: Troponin I 0.06 ng/mL (< 0.04)
[2020-06-27] MEDS ORDERED: 0.9 % Sodium Chloride 500 ML IVC ONE (11:27)
[2020-06-27] MEDS ORDERED: Lidocaine Viscous Oral Soln 15 ML SOLUTION MM PRN (11:27)
[2020-06-27] MEDS: *HR* Midazolam HCl 5 MG/5 ML VIAL IVP PRN ×2 (11:45→12:20)
[2020-06-27] MEDS: *HR* FentaNYL (PF) 100 MCG/2 ML VIAL IVP PRN ×3 (11:45→12:20)
[2020-06-27 12:10] LABS: Thyroid Stimulating Hormone 1.812 mcIU/mL (0.340-5.600)
[2020-06-27] MEDS: Insulin LISPRO 300 UNITS/3 ML VIAL SUBQ SCH (16:50)
[2020-06-27] MEDS ORDERED: Insulin DETEMIR 100 UNIT/ML X5UNITS SUBQ SCH (21:00)
[2020-06-27] MEDS ORDERED: Gabapentin 300 MG CAPSULE PO SCH (21:00)
[2020-06-27] MEDS: *HR* Amiodarone 200 MG TABLET PO SCH (21:55)
[2020-06-28] MEDS: Metoprolol XL (24 HR) Succ 50 MG TAB.ER.24H PO SCH (08:11)
[2020-06-28] MEDS: Aspirin Enteric Coated 81 MG Tablet PO SCH (08:11)
[2020-06-28] MEDS: *HR* Amiodarone 200 MG TABLET PO SCH (08:11)
[2020-06-28] MEDS: Apixaban 5 MG TABLET PO SCH (08:12)
[2020-06-28] MEDS: Insulin LISPRO 300 UNITS/3 ML VIAL SUBQ SCH ×2 (08:12→12:00)
[2020-06-28] MEDS ORDERED: Furosemide 20 MG TABLET PO SCH (09:00)
[2020-06-28 10:02] VITALS: BP 97/61
== END 2020-06-28 14:57 | disposition home or self-care (01) ==
LOC: 3ANU → SUATTDRO 06-27 01:04
PROVIDERS: ADMIT Family Medicine; ATTEND Internal Medicine

== ENCOUNTER 2020-06-28 17:00 | Observation (INO) ==
[2020-06-28] MEDS ORDERED: 0.9 % Sodium Chloride 1,000 ML IVC ONE ×2 (17:33→18:27)
[2020-06-28 18:03] LABS: Basophils % 0.4 %; Eosinophils # 0.2 K/mcL (0.0-0.6); Eosinophils % 2.4 %; Hematocrit 37.1 % (37.5-50.1); Hemoglobin 11.9 g/dL (12.9-16.9); INR 1.6; Immature Granulocytes % 0.4 % (0-4); Lymphocytes # 1.6 K/mcL (0.6-4.6); Lymphocytes % 19.7 %; Mean Corpuscular HGB Conc 32.1 g/dL (31.6-35.5); Mean Corpuscular Hemoglobin 26.5 pg (28.0-33.3); Mean Corpuscular Volume 82.6 fL (83.0-100.0); Mean Platelet Volume 10.8 fL (9.4-12.4); Monocytes # 0.5 K/mcL (0.0-1.3); Monocytes % 6.1 %; Neutrophils # 5.6 K/mcL (1.6-8.9); Platelet Count 167 K/mcL (140-400); Prothrombin Time 17.7 Seconds (9.4-12.1); Red Blood Count 4.49 M/mcL (4.19-5.50); Red Cell Distribution Width 14.4 % (11.5-14.5); White Blood Count 7.9 K/mcL (4.3-11.1)
[2020-06-28 18:05] LABS: Activated Partial Thrombo Time 35.1 Seconds (26.0-36.0)
[2020-06-28 18:26] LABS: Alanine Aminotransferase 10 Units/L (7-52); Albumin 3.7 g/dL (3.5-5.7); Albumin/Globulin Ratio 1.1 (1.1-2.2); Alkaline Phosphatase 71 Units/L (34-104); Aspartate Amino Transferase 7 Units/L (13-39); BUN/Creatinine Ratio 22 (6-26); Bilirubin,Direct 0.1 mg/dL (0.0-0.2); Bilirubin,Indirect 0.5 mg/dL (0.0-1.0); Bilirubin,Total 0.6 mg/dL (0.3-1.0); Blood Urea Nitrogen 27 mg/dL (8-23); Calcium 9.8 mg/dL (8.6-10.3); Carbon Dioxide 24 mEq/L (23-29); Chloride 103 mEq/L (98-107); Globulin 3.5 g/dL (2.4-3.5); Glucose 199 mg/dL (70-105); Lipase 444 Units/L (11-82); Magnesium 2.2 mg/dL (1.6-2.6); Osmolality,Calculated 295 (280-300); Potassium 3.8 mEq/L (3.5-5.1); Sodium 137 mEq/L (136-145); Total Protein 7.2 g/dL (6.4-8.9); Troponin I 0.07 ng/mL (< 0.04); eGFR For African Americans > 60 (> 60); eGFR For Non-African Americans 58 (> 60)
[2020-06-28] MEDS ORDERED: Isovue-370 500 ML BOTTLE IVP ONE (18:26)
[2020-06-28 18:36] LABS: Thyroid Stimulating Hormone 3.693 mcIU/mL (0.340-5.600)
[2020-06-28] MEDS ORDERED: Ondansetron 4 MG/2 ML VIAL IVP PRN (22:10)
[2020-06-28] MEDS ORDERED: Naloxone 0.4 MG/ML INJ IVP PRN (22:10)
[2020-06-28] MEDS: Apixaban 5 MG TABLET PO SCH (23:01)
[2020-06-29 01:24] LABS: Basophils % 0.4 %; Eosinophils % 0.6 %; Hematocrit 36.4 % (37.5-50.1); Hemoglobin 11.4 g/dL (12.9-16.9); Immature Granulocytes % 0.3 % (0-4); Lymphocytes # 1.7 K/mcL (0.6-4.6); Mean Corpuscular HGB Conc 31.3 g/dL (31.6-35.5); Mean Corpuscular Hemoglobin 26.4 pg (28.0-33.3); Mean Corpuscular Volume 84.3 fL (83.0-100.0); Mean Platelet Volume 11.3 fL (9.4-12.4); Monocytes # 0.4 K/mcL (0.0-1.3); Monocytes % 6.5 %; Neutrophils # 4.6 K/mcL (1.6-8.9); Platelet Count 160 K/mcL (140-400); Red Blood Count 4.32 M/mcL (4.19-5.50); Red Cell Distribution Width 14.4 % (11.5-14.5); Segmented Neutrophils % 67.2 %; White Blood Count 6.8 K/mcL (4.3-11.1)
[2020-06-29 01:38] LABS: Alanine Aminotransferase 9 Units/L (7-52); Albumin 3.6 g/dL (3.5-5.7); Albumin/Globulin Ratio 1.1 (1.1-2.2); Alkaline Phosphatase 69 Units/L (34-104); Aspartate Amino Transferase 8 Units/L (13-39); BUN/Creatinine Ratio 24 (6-26); Bilirubin,Total 0.6 mg/dL (0.3-1.0); Blood Urea Nitrogen 26 mg/dL (8-23); Calcium 9.2 mg/dL (8.6-10.3); Carbon Dioxide 21 mEq/L (23-29); Chloride 106 mEq/L (98-107); Globulin 3.2 g/dL (2.4-3.5); Glucose 213 mg/dL (70-105); Osmolality,Calculated 291 (280-300); Potassium 4.3 mEq/L (3.5-5.1); Sodium 135 mEq/L (136-145); Total Protein 6.8 g/dL (6.4-8.9); eGFR For African Americans > 60 (> 60); eGFR For Non-African Americans > 60 (> 60)
[2020-06-29 01:43] LABS: Troponin I 0.06 ng/mL (< 0.04)
[2020-06-29] MEDS: lisinopriL 10 MG TABLET PO SCH (08:42)
[2020-06-29] MEDS: Metoprolol XL (24 HR) Succ 50 MG TAB.ER.24H PO SCH ×2 (08:42→20:50)
[2020-06-29] MEDS: Furosemide 20 MG TABLET PO SCH ×2 (08:42→16:22)
[2020-06-29] MEDS: Aspirin Enteric Coated 81 MG Tablet PO SCH (08:42)
[2020-06-29] MEDS: Apixaban 5 MG TABLET PO SCH ×2 (08:42→20:50)
[2020-06-29] MEDS: *HR* Amiodarone 200 MG TABLET PO SCH ×2 (08:42→20:50)
[2020-06-29] MEDS ORDERED: *HR* Dextrose 50 % in Water (Vial) 50 ML VIAL IVP PRN (12:43)
[2020-06-29] MEDS ORDERED: Dextrose Gel 15 GM/37.5 ML TUBE PO PRN ×2 (12:43)
[2020-06-29] MEDS ORDERED: D5% in Water 1,000 ML IVC PRN (12:43)
[2020-06-29] MEDS ORDERED: Acetaminophen 325 MG TABLET PO PRN (15:57)
[2020-06-29] MEDS: Insulin LISPRO 300 UNITS/3 ML VIAL SUBQ SCH (17:11)
[2020-06-29] MEDS ORDERED: Gabapentin 300 MG CAPSULE PO SCH (21:00)
[2020-06-30 02:19] LABS: Hemoglobin 12.2 g/dL (12.9-16.9); Mean Corpuscular HGB Conc 29.8 g/dL (31.6-35.5); Mean Corpuscular Hemoglobin 26.3 pg (28.0-33.3); Mean Corpuscular Volume 88.6 fL (83.0-100.0); Mean Platelet Volume 11.3 fL (9.4-12.4); Platelet Count 159 K/mcL (140-400); Red Blood Count 4.63 M/mcL (4.19-5.50); Red Cell Distribution Width 14.6 % (11.5-14.5); White Blood Count 6.2 K/mcL (4.3-11.1)
[2020-06-30 02:32] LABS: Alanine Aminotransferase 10 Units/L (7-52); Albumin 3.7 g/dL (3.5-5.7); Albumin/Globulin Ratio 1.2 (1.1-2.2); Alkaline Phosphatase 77 Units/L (34-104); Aspartate Amino Transferase 9 Units/L (13-39); BUN/Creatinine Ratio 16 (6-26); Bilirubin,Total 0.5 mg/dL (0.3-1.0); Blood Urea Nitrogen 19 mg/dL (8-23); Calcium 9.1 mg/dL (8.6-10.3); Carbon Dioxide 26 mEq/L (23-29); Chloride 103 mEq/L (98-107); Globulin 3.1 g/dL (2.4-3.5); Glucose 303 mg/dL (70-105); Osmolality,Calculated 294 (280-300); Potassium 4.2 mEq/L (3.5-5.1); Sodium 135 mEq/L (136-145); Total Protein 6.8 g/dL (6.4-8.9); eGFR For African Americans > 60 (> 60); eGFR For Non-African Americans > 60 (> 60)
[2020-06-30 07:34] VITALS: BP 119/75
[2020-06-30] MEDS: Apixaban 5 MG TABLET PO SCH (07:56)
[2020-06-30] MEDS: Metoprolol XL (24 HR) Succ 50 MG TAB.ER.24H PO SCH (07:56)
[2020-06-30] MEDS: Furosemide 20 MG TABLET PO SCH (07:56)
[2020-06-30] MEDS: Insulin LISPRO 300 UNITS/3 ML VIAL SUBQ SCH ×2 (07:56→11:28)
[2020-06-30] MEDS: lisinopriL 10 MG TABLET PO SCH (07:56)
[2020-06-30] MEDS: *HR* Amiodarone 200 MG TABLET PO SCH (07:56)
[2020-06-30] MEDS: Aspirin Enteric Coated 81 MG Tablet PO SCH (07:56)
== END 2020-06-30 14:24 | disposition home or self-care (01) ==
LOC: EMEROOARM 17:00 → 3BNU 17:00
PROVIDERS: ADMIT Student in an Organized Health Care Education/Training Program; ATTEND Student in an Organized Health Care Education/Training Program

== ENCOUNTER 2021-05-09 15:36 | Inpatient (IN) ==
[2021-05-09 20:09] LABS: BUN/Creatinine Ratio 18 (6-26); Blood Urea Nitrogen 22 mg/dL (8-23); Calcium 8.4 mg/dL (8.6-10.3); Carbon Dioxide 15 mEq/L (23-29); Chloride 105 mEq/L (98-107); Glucose 334 mg/dL (70-105); Osmolality,Calculated 296 (280-300); Potassium 4.3 mEq/L (3.5-5.1); Sodium 135 mEq/L (136-145); eGFR For African Americans > 60 (> 60); eGFR For Non-African Americans > 60 (> 60)
[2021-05-09] MEDS ORDERED: Naloxone 0.4 MG/ML INJ IVP PRN (20:43)
[2021-05-09] MEDS ORDERED: Melatonin 3 MG TABLET PO PRN (20:43)
[2021-05-09] MEDS ORDERED: 0.9 % Sodium Chloride 1,000 ML IVC SCH (20:45)
[2021-05-09] MEDS ORDERED: D5% in Water 1,000 ML IVC PRN (20:46)
[2021-05-09] MEDS ORDERED: *HR* Dextrose 50 % in Water (Syg) 50 ML SYRINGE IVP PRN (20:46)
[2021-05-09] MEDS ORDERED: Dextrose Gel 15 GM/37.5 ML TUBE PO PRN ×2 (20:46)
[2021-05-09] MEDS ORDERED: Insulin DETEMIR 100 UNIT/ML X5UNITS SUBQ SCH (21:00)
[2021-05-09 21:21] LABS: Estimated Average Glucose 335 mg/dl; Hemoglobin A1C 13.3 %
[2021-05-09] MEDS ORDERED: Insulin LISPRO 300 UNITS/3 ML VIAL SUBQ SCH (21:31)
[2021-05-09 21:39] LABS: VBG HCO3 17 mEq/L (21-27); VBG PCO2 37 mmHg (41-51); VBG PH 7.28 pH Units (7.32-7.42); VBG PO2 36 mmHg (25-50)
[2021-05-09] MEDS: 0.9 % Sodium Chloride 1,000 ML IVC SCH (23:24)
[2021-05-09] MEDS: Ondansetron 4 MG/2 ML VIAL IVP PRN (23:24)
[2021-05-09 23:31] LABS: BUN/Creatinine Ratio 18 (6-26); Blood Urea Nitrogen 23 mg/dL (8-23); Calcium 8.5 mg/dL (8.6-10.3); Carbon Dioxide 15 mEq/L (23-29); Chloride 100 mEq/L (98-107); Glucose 311 mg/dL (70-105); Osmolality,Calculated 291 (280-300); Potassium 3.7 mEq/L (3.5-5.1); Sodium 133 mEq/L (136-145); eGFR For African Americans > 60 (> 60); eGFR For Non-African Americans 56 (> 60)
[2021-05-10] MEDS ORDERED: Insulin LISPRO 300 UNITS/3 ML VIAL SUBQ SCH
[2021-05-10] MEDS: Vancomycin 1,250 MG/262.5 ML IV.SOLN IVPB SCH ×2 (02:36→14:09)
[2021-05-10] MEDS: 0.9 % Sodium Chloride 1,000 ML IVC SCH ×2 (02:37→20:12)
[2021-05-10] MEDS: Insulin LISPRO 300 UNITS/3 ML VIAL SUBQ SCH ×4 (05:41→23:18)
[2021-05-10 05:58] LABS: BUN/Creatinine Ratio 18 (6-26); Blood Urea Nitrogen 22 mg/dL (8-23); Calcium 8.6 mg/dL (8.6-10.3); Carbon Dioxide 17 mEq/L (23-29); Chloride 100 mEq/L (98-107); Glucose 217 mg/dL (70-105); Osmolality,Calculated 288 (280-300); Potassium 3.4 mEq/L (3.5-5.1); Sodium 134 mEq/L (136-145); eGFR For African Americans > 60 (> 60); eGFR For Non-African Americans 60 (> 60)
[2021-05-10 07:20] LABS: Basophils % 0.2 %; Eosinophils % 0.2 %; Hemoglobin 12.6 g/dL (12.9-16.9); Immature Granulocytes % 1.1 % (0-4); Lymphocytes # 0.8 K/mcL (0.6-4.6); Lymphocytes % 6.8 %; Mean Corpuscular HGB Conc 31.5 g/dL (31.6-35.5); Mean Corpuscular Hemoglobin 27.8 pg (28.0-33.3); Mean Corpuscular Volume 88.1 fL (83.0-100.0); Mean Platelet Volume 10.4 fL (9.4-12.4); Monocytes # 0.6 K/mcL (0.0-1.3); Neutrophils # 10.1 K/mcL (1.6-8.9); Platelet Count 229 K/mcL (140-400); Red Blood Count 4.54 M/mcL (4.19-5.50); Red Cell Distribution Width 13.3 % (11.5-14.5); Segmented Neutrophils % 86.7 %; White Blood Count 11.6 K/mcL (4.3-11.1)
[2021-05-10] MEDS: Ondansetron 4 MG/2 ML VIAL IVP PRN (07:32)
[2021-05-10] MEDS: Piperacillin/Tazobactam 3.375 GM in 0.9 % Sodium Chloride Mini Bag 100 ML IVPB SCH ×3 (07:35→23:17)
[2021-05-10] MEDS ORDERED: Acetaminophen 325 MG TABLET PO PRN ×2 (09:10→18:54)
[2021-05-10] MEDS ORDERED: Ketorolac 30 MG/ML VIAL IVP PRN ×2 (09:11→18:54)
[2021-05-10] MEDS ORDERED: 0.9 % Sodium Chloride 1,000 ML IVC SCH (15:30)
[2021-05-10] MEDS ORDERED: *HR* FentaNYL (PF) 100 MCG/2 ML VIAL ONE (16:18)
[2021-05-10] MEDS ORDERED: *HR* Midazolam HCl 2 MG/2 ML VIAL ONE (16:19)
[2021-05-10] MEDS ORDERED: *HR* Propofol 200 MG/20 ML VIAL IVP ONE (16:19)
[2021-05-10] MEDS ORDERED: Lidocaine -MPF 2% 5 ML VIAL ONE (16:20)
[2021-05-10] MEDS ORDERED: *HR* Succinylcholine 200 MG/10 ML VIAL IVP ONE (16:21)
[2021-05-10] MEDS ORDERED: Lidocaine 1% 20 ML MDV ONE (17:06)
[2021-05-10] MEDS ORDERED: Famotidine 20 MG/2 ML VIAL ONE (17:10)
[2021-05-10] MEDS ORDERED: Acetaminophen IV 1,000 MG/100 ML BAG IVPB ONE (17:10)
[2021-05-10] MEDS ORDERED: Ondansetron 4 MG/2 ML VIAL ONE (17:11)
[2021-05-10] MEDS ORDERED: *HR* Metoprolol 5 MG/5 ML VIAL IVP ONE (17:20)
[2021-05-10] MEDS ORDERED: *HR* Dextrose 50 % in Water (Syg) 50 ML SYRINGE IVP PRN (18:54)
[2021-05-10] MEDS ORDERED: Ondansetron 4 MG/2 ML VIAL IVP PRN (18:54)
[2021-05-10] MEDS ORDERED: Melatonin 3 MG TABLET PO PRN (18:54)
[2021-05-10] MEDS ORDERED: D5% in Water 1,000 ML IVC PRN (18:54)
[2021-05-10] MEDS ORDERED: Dextrose Gel 15 GM/37.5 ML TUBE PO PRN ×2 (18:54)
[2021-05-10] MEDS ORDERED: Naloxone 0.4 MG/ML INJ IVP PRN (18:54)
[2021-05-10] MEDS: Sacubitril/Valsartan 24/26 MG 1 TABLET PO SCH (19:30)
[2021-05-10] MEDS ORDERED: Sacubitril/Valsartan 24/26 MG 1 TABLET PO SCH (21:00)
[2021-05-11 01:08] LABS: Hematocrit 37.6 % (37.5-50.1); Mean Corpuscular HGB Conc 31.9 g/dL (31.6-35.5); Mean Corpuscular Hemoglobin 28.1 pg (28.0-33.3); Mean Corpuscular Volume 88.1 fL (83.0-100.0); Mean Platelet Volume 10.4 fL (9.4-12.4); Platelet Count 212 K/mcL (140-400); Red Blood Count 4.27 M/mcL (4.19-5.50); Red Cell Distribution Width 13.5 % (11.5-14.5); White Blood Count 6.9 K/mcL (4.3-11.1)
[2021-05-11 01:21] LABS: BUN/Creatinine Ratio 17 (6-26); Blood Urea Nitrogen 23 mg/dL (8-23); Calcium 7.6 mg/dL (8.6-10.3); Carbon Dioxide 19 mEq/L (23-29); Chloride 102 mEq/L (98-107); Glucose 364 mg/dL (70-105); Osmolality,Calculated 286 (280-300); Phosphorous 2.2 mg/dL (2.7-4.5); Potassium 3.6 mEq/L (3.5-5.1); Sodium 129 mEq/L (136-145); eGFR For African Americans > 60 (> 60); eGFR For Non-African Americans 55 (> 60)
[2021-05-11] MEDS: Vancomycin 1,500 MG/265 ML IV.SOLN IVPB SCH ×2 (02:43→15:07)
[2021-05-11] MEDS ORDERED: Vancomycin 1,250 MG/262.5 ML IV.SOLN IVPB SCH (03:00)
[2021-05-11] MEDS: Insulin LISPRO 300 UNITS/3 ML VIAL SUBQ SCH ×4 (06:02→22:22)
[2021-05-11 07:26] LABS: Enterococcus by PCR Not Detected (Not Detect); Staphylococcus aureus by PCR Not Detected (Not Detect); Staphylococcus by PCR Not Detected (Not Detect)
[2021-05-11 07:27] LABS: Acinetobacter baumannii by PCR Not Detected (Not Detect); Candida albicans by PCR Not Detected (Not Detect); Candida glabrata by PCR Not Detected (Not Detect); Candida krusei by PCR Not Detected (Not Detect); Candida parapsilosis by PCR Not Detected (Not Detect); Candida tropicalis by PCR Not Detected (Not Detect); Enterobacter cloacae Cmplx PCR Not Detected (Not Detect); Enterobacteriaceae by PCR Not Detected (Not Detect); Escherichia coli by PCR Not Detected (Not Detect); Klebsiella oxytoca by PCR Not Detected (Not Detect); Klebsiella pneumoniae by PCR Not Detected (Not Detect); Proteus by PCR Not Detected (Not Detect); Pseudomonas aeruginosa by PCR Not Detected (Not Detect); Serratia marcescens by PCR Not Detected (Not Detect); Streptococcus agalactiae(B)PCR DETECTED (Not Detect); Streptococcus pneumoniae PCR Not Detected (Not Detect); Streptococcus pyogenes (A) PCR Not Detected (Not Detect)
[2021-05-11] MEDS: Piperacillin/Tazobactam 3.375 GM in 0.9 % Sodium Chloride Mini Bag 100 ML IVPB SCH (08:12)
[2021-05-11] MEDS: Sacubitril/Valsartan 24/26 MG 1 TABLET PO SCH ×2 (08:12→22:38)
[2021-05-11] MEDS: Aspirin 81 MG TAB.CHEW PO SCH (08:13)
[2021-05-11] MEDS: Metoprolol XL (24 HR) Succ 50 MG TAB.ER.24H PO SCH (08:13)
[2021-05-11] MEDS: 0.9 % Sodium Chloride 1,000 ML IVC SCH (08:13)
[2021-05-11] MEDS ORDERED: Aspirin 81 MG TAB.CHEW PO SCH (09:00)
[2021-05-11] MEDS ORDERED: Metoprolol XL (24 HR) Succ 50 MG TAB.ER.24H PO SCH (09:00)
[2021-05-11] MEDS ORDERED: Aspirin Enteric Coated 81 MG Tablet PO SCH (09:00)
[2021-05-11 16:34] LABS: BUN/Creatinine Ratio 13 (6-26); Blood Urea Nitrogen 18 mg/dL (8-23); Calcium 7.5 mg/dL (8.6-10.3); Carbon Dioxide 19 mEq/L (23-29); Chloride 102 mEq/L (98-107); Glucose 211 mg/dL (70-105); Osmolality,Calculated 278 (280-300); Potassium 3.2 mEq/L (3.5-5.1); Sodium 130 mEq/L (136-145); eGFR For African Americans > 60 (> 60); eGFR For Non-African Americans 53 (> 60)
[2021-05-11] MEDS: Cefepime HCl 2,000 MG in 0.9 % Sodium Chloride Mini Bag 100 ML IVPB SCH (18:18)
[2021-05-12 02:49] LABS: Hemoglobin 10.9 g/dL (12.9-16.9); Mean Corpuscular HGB Conc 32.1 g/dL (31.6-35.5); Mean Corpuscular Hemoglobin 27.8 pg (28.0-33.3); Mean Corpuscular Volume 86.7 fL (83.0-100.0); Mean Platelet Volume 10.5 fL (9.4-12.4); Platelet Count 211 K/mcL (140-400); Red Blood Count 3.92 M/mcL (4.19-5.50); Red Cell Distribution Width 13.4 % (11.5-14.5); White Blood Count 7.6 K/mcL (4.3-11.1)
[2021-05-12 03:09] LABS: BUN/Creatinine Ratio 16 (6-26); Blood Urea Nitrogen 21 mg/dL (8-23); Calcium 7.6 mg/dL (8.6-10.3); Carbon Dioxide 18 mEq/L (23-29); Chloride 107 mEq/L (98-107); Glucose 213 mg/dL (70-105); Magnesium 1.9 mg/dL (1.6-2.6); Osmolality,Calculated 277 (280-300); Phosphorous 2.3 mg/dL (2.7-4.5); Potassium 3.4 mEq/L (3.5-5.1); Sodium 129 mEq/L (136-145); eGFR For African Americans > 60 (> 60); eGFR For Non-African Americans 57 (> 60)
[2021-05-12] MEDS: Vancomycin 1,500 MG/265 ML IV.SOLN IVPB SCH ×2 (04:33→15:32)
[2021-05-12] MEDS: Cefepime HCl 2,000 MG in 0.9 % Sodium Chloride Mini Bag 100 ML IVPB SCH ×2 (06:01→17:12)
[2021-05-12] MEDS ORDERED: Magnesium Sulfate 1 GM/102 ML PIGGYBACK IVPB ONE (07:24)
[2021-05-12] MEDS ORDERED: Potassium Phosphate 44 MEQ in 0.9 % Sodium Chloride 250 ML IVPB ONE (07:24)
[2021-05-12] MEDS ORDERED: 0.9 % Sodium Chloride 1,000 ML IVC SCH (07:30)
[2021-05-12] MEDS: Metoprolol XL (24 HR) Succ 50 MG TAB.ER.24H PO SCH (08:34)
[2021-05-12] MEDS: Insulin LISPRO 300 UNITS/3 ML VIAL SUBQ SCH ×4 (08:34→21:40)
[2021-05-12] MEDS: Aspirin 81 MG TAB.CHEW PO SCH (08:34)
[2021-05-12] MEDS: Sacubitril/Valsartan 24/26 MG 1 TABLET PO SCH ×2 (08:34→21:40)
[2021-05-12] MEDS: Lactobacillus 1 EACH CAP.SPRINK PO SCH (21:40)
[2021-05-13 02:06] LABS: Hematocrit 33.8 % (37.5-50.1); Hemoglobin 10.9 g/dL (12.9-16.9); Mean Corpuscular HGB Conc 32.2 g/dL (31.6-35.5); Mean Corpuscular Hemoglobin 28.2 pg (28.0-33.3); Mean Corpuscular Volume 87.3 fL (83.0-100.0); Mean Platelet Volume 10.5 fL (9.4-12.4); Platelet Count 223 K/mcL (140-400); Red Blood Count 3.87 M/mcL (4.19-5.50); Red Cell Distribution Width 13.4 % (11.5-14.5); White Blood Count 7.9 K/mcL (4.3-11.1)
[2021-05-13 02:24] LABS: BUN/Creatinine Ratio 13 (6-26); Blood Urea Nitrogen 16 mg/dL (8-23); Calcium 7.8 mg/dL (8.6-10.3); Carbon Dioxide 21 mEq/L (23-29); Chloride 104 mEq/L (98-107); Glucose 184 mg/dL (70-105); Osmolality,Calculated 284 (280-300); Potassium 3.6 mEq/L (3.5-5.1); Sodium 134 mEq/L (136-145); eGFR For African Americans > 60 (> 60); eGFR For Non-African Americans > 60 (> 60)
[2021-05-13] MEDS: Vancomycin 1,500 MG/265 ML IV.SOLN IVPB SCH ×2 (02:45→16:24)
[2021-05-13] MEDS: Cefepime HCl 2,000 MG in 0.9 % Sodium Chloride Mini Bag 100 ML IVPB SCH ×2 (06:10→17:52)
[2021-05-13] MEDS: Metoprolol XL (24 HR) Succ 50 MG TAB.ER.24H PO SCH (08:08)
[2021-05-13] MEDS: Sacubitril/Valsartan 24/26 MG 1 TABLET PO SCH ×2 (08:08→20:41)
[2021-05-13] MEDS: Lactobacillus 1 EACH CAP.SPRINK PO SCH ×2 (08:08→20:41)
[2021-05-13] MEDS: Aspirin 81 MG TAB.CHEW PO SCH (08:08)
[2021-05-13] MEDS: Insulin LISPRO 300 UNITS/3 ML VIAL SUBQ SCH ×4 (08:09→20:41)
[2021-05-13] MEDS: Gabapentin 300 MG CAPSULE PO PRN (20:44)
[2021-05-14 02:31] LABS: Hematocrit 35.2 % (37.5-50.1); Mean Corpuscular HGB Conc 31.3 g/dL (31.6-35.5); Mean Corpuscular Volume 89.6 fL (83.0-100.0); Mean Platelet Volume 10.2 fL (9.4-12.4); Platelet Count 240 K/mcL (140-400); Red Blood Count 3.93 M/mcL (4.19-5.50); Red Cell Distribution Width 13.4 % (11.5-14.5); White Blood Count 8.2 K/mcL (4.3-11.1)
[2021-05-14 02:50] LABS: BUN/Creatinine Ratio 13 (6-26); Blood Urea Nitrogen 14 mg/dL (8-23); Calcium 8.2 mg/dL (8.6-10.3); Carbon Dioxide 22 mEq/L (23-29); Chloride 105 mEq/L (98-107); Glucose 231 mg/dL (70-105); Osmolality,Calculated 286 (280-300); Phosphorous 3.2 mg/dL (2.7-4.5); Potassium 3.6 mEq/L (3.5-5.1); Sodium 134 mEq/L (136-145); eGFR For African Americans > 60 (> 60); eGFR For Non-African Americans > 60 (> 60)
[2021-05-14] MEDS: Vancomycin 1,500 MG/265 ML IV.SOLN IVPB SCH ×2 (03:02→16:12)
[2021-05-14] MEDS: Cefepime HCl 2,000 MG in 0.9 % Sodium Chloride Mini Bag 100 ML IVPB SCH ×2 (05:04→18:19)
[2021-05-14] MEDS: Insulin LISPRO 300 UNITS/3 ML VIAL SUBQ SCH ×4 (09:14→20:50)
[2021-05-14] MEDS: Sacubitril/Valsartan 24/26 MG 1 TABLET PO SCH ×2 (09:15→20:49)
[2021-05-14] MEDS: Metoprolol XL (24 HR) Succ 50 MG TAB.ER.24H PO SCH (09:15)
[2021-05-14] MEDS: Lactobacillus 1 EACH CAP.SPRINK PO SCH ×2 (09:15→20:49)
[2021-05-14] MEDS: Aspirin 81 MG TAB.CHEW PO SCH (09:15)
[2021-05-14] MEDS: metroNIDAZOLE 500 MG TABLET PO SCH ×2 (16:12→20:49)
[2021-05-15 03:28] LABS: Basophils # 0.1 K/mcL (0.0-0.2); Eosinophils # 0.3 K/mcL (0.0-0.6); Eosinophils % 3.1 %; Hematocrit 35.5 % (37.5-50.1); Hemoglobin 11.5 g/dL (12.9-16.9); Immature Granulocytes % 3.1 % (0-4); Lymphocytes % 20.9 %; Mean Corpuscular HGB Conc 32.4 g/dL (31.6-35.5); Mean Corpuscular Hemoglobin 28.3 pg (28.0-33.3); Mean Corpuscular Volume 87.4 fL (83.0-100.0); Mean Platelet Volume 10.3 fL (9.4-12.4); Monocytes % 10.1 %; Neutrophils # 5.8 K/mcL (1.6-8.9); Platelet Count 290 K/mcL (140-400); Red Blood Count 4.06 M/mcL (4.19-5.50); Red Cell Distribution Width 13.2 % (11.5-14.5); Segmented Neutrophils % 61.8 %; White Blood Count 9.4 K/mcL (4.3-11.1)
[2021-05-15 03:47] LABS: BUN/Creatinine Ratio 11 (6-26); Blood Urea Nitrogen 15 mg/dL (8-23); Calcium 8.6 mg/dL (8.6-10.3); Carbon Dioxide 27 mEq/L (23-29); Chloride 102 mEq/L (98-107); Glucose 218 mg/dL (70-105); Osmolality,Calculated 289 (280-300); Potassium 3.5 mEq/L (3.5-5.1); Sodium 136 mEq/L (136-145); eGFR For African Americans > 60 (> 60); eGFR For Non-African Americans 51 (> 60)
[2021-05-15] MEDS: Vancomycin 1,500 MG/265 ML IV.SOLN IVPB SCH (03:54)
[2021-05-15] MEDS: Cefepime HCl 2,000 MG in 0.9 % Sodium Chloride Mini Bag 100 ML IVPB SCH ×2 (05:40→18:41)
[2021-05-15] MEDS: Aspirin 81 MG TAB.CHEW PO SCH (09:43)
[2021-05-15] MEDS: Sacubitril/Valsartan 24/26 MG 1 TABLET PO SCH ×2 (09:43→20:39)
[2021-05-15] MEDS: Insulin LISPRO 300 UNITS/3 ML VIAL SUBQ SCH ×4 (09:43→20:43)
[2021-05-15] MEDS: Lactobacillus 1 EACH CAP.SPRINK PO SCH ×2 (09:43→20:39)
[2021-05-15] MEDS: Metoprolol XL (24 HR) Succ 50 MG TAB.ER.24H PO SCH (09:43)
[2021-05-15] MEDS: metroNIDAZOLE 500 MG TABLET PO SCH ×3 (09:45→20:43)
[2021-05-15] MEDS ORDERED: Vancomycin 1,250 MG/262.5 ML IV.SOLN IVPB SCH (17:00)
[2021-05-15] MEDS: Gabapentin 300 MG CAPSULE PO PRN (20:39)
[2021-05-16 06:14] LABS: Hematocrit 36.3 % (37.5-50.1); Hemoglobin 11.4 g/dL (12.9-16.9); Mean Corpuscular HGB Conc 31.4 g/dL (31.6-35.5); Mean Corpuscular Hemoglobin 27.3 pg (28.0-33.3); Mean Corpuscular Volume 86.8 fL (83.0-100.0); Mean Platelet Volume 10.3 fL (9.4-12.4); Platelet Count 290 K/mcL (140-400); Red Blood Count 4.18 M/mcL (4.19-5.50); Red Cell Distribution Width 13.2 % (11.5-14.5); White Blood Count 8.7 K/mcL (4.3-11.1)
[2021-05-16 06:34] LABS: BUN/Creatinine Ratio 10 (6-26); Blood Urea Nitrogen 13 mg/dL (8-23); Calcium 8.4 mg/dL (8.6-10.3); Carbon Dioxide 25 mEq/L (23-29); Chloride 102 mEq/L (98-107); Glucose 215 mg/dL (70-105); Osmolality,Calculated 285 (280-300); Potassium 3.8 mEq/L (3.5-5.1); Sodium 134 mEq/L (136-145); eGFR For African Americans > 60 (> 60); eGFR For Non-African Americans 54 (> 60)
[2021-05-16] MEDS: Cefepime HCl 2,000 MG in 0.9 % Sodium Chloride Mini Bag 100 ML IVPB SCH ×2 (06:47→20:10)
[2021-05-16] MEDS: Lactobacillus 1 EACH CAP.SPRINK PO SCH ×2 (09:01→20:10)
[2021-05-16] MEDS: Aspirin 81 MG TAB.CHEW PO SCH (09:01)
[2021-05-16] MEDS: metroNIDAZOLE 500 MG TABLET PO SCH ×3 (09:01→20:09)
[2021-05-16] MEDS: Metoprolol XL (24 HR) Succ 50 MG TAB.ER.24H PO SCH (09:01)
[2021-05-16] MEDS: Sacubitril/Valsartan 24/26 MG 1 TABLET PO SCH ×2 (09:01→22:07)
[2021-05-16] MEDS: Insulin LISPRO 300 UNITS/3 ML VIAL SUBQ SCH ×4 (09:06→22:06)
[2021-05-16] MEDS: *HR* Heparin 5,000 UNIT/ML VIAL SQ SCH (18:04)
[2021-05-17] MEDS: Cefepime HCl 2,000 MG in 0.9 % Sodium Chloride Mini Bag 100 ML IVPB SCH ×2 (05:14→17:42)
[2021-05-17] MEDS: *HR* Heparin 5,000 UNIT/ML VIAL SQ SCH ×2 (05:15→17:41)
[2021-05-17 05:56] LABS: Hematocrit 36.8 % (37.5-50.1); Hemoglobin 11.8 g/dL (12.9-16.9); Mean Corpuscular HGB Conc 32.1 g/dL (31.6-35.5); Mean Corpuscular Hemoglobin 27.3 pg (28.0-33.3); Platelet Count 286 K/mcL (140-400); Red Blood Count 4.33 M/mcL (4.19-5.50); Red Cell Distribution Width 12.9 % (11.5-14.5); White Blood Count 8.3 K/mcL (4.3-11.1)
[2021-05-17 06:13] LABS: BUN/Creatinine Ratio 13 (6-26); Blood Urea Nitrogen 16 mg/dL (8-23); Calcium 8.5 mg/dL (8.6-10.3); Carbon Dioxide 26 mEq/L (23-29); Chloride 102 mEq/L (98-107); Glucose 191 mg/dL (70-105); Osmolality,Calculated 284 (280-300); Potassium 3.7 mEq/L (3.5-5.1); Sodium 134 mEq/L (136-145); Vancomycin,Trough 13 mcg/mL (5-10); eGFR For African Americans > 60 (> 60); eGFR For Non-African Americans 59 (> 60)
[2021-05-17] MEDS: Aspirin 81 MG TAB.CHEW PO SCH (08:12)
[2021-05-17] MEDS: metroNIDAZOLE 500 MG TABLET PO SCH ×3 (08:13→20:35)
[2021-05-17] MEDS: Sacubitril/Valsartan 24/26 MG 1 TABLET PO SCH ×2 (08:13→20:35)
[2021-05-17] MEDS: Metoprolol XL (24 HR) Succ 50 MG TAB.ER.24H PO SCH (08:14)
[2021-05-17] MEDS: Insulin LISPRO 300 UNITS/3 ML VIAL SUBQ SCH ×4 (08:15→20:36)
[2021-05-17] MEDS: Lactobacillus 1 EACH CAP.SPRINK PO SCH ×2 (10:59→20:35)
[2021-05-17] MEDS: Insulin DETEMIR 100 UNIT/ML X5UNITS SUBQ SCH (15:36)
[2021-05-17] MEDS: Vancomycin 1,250 MG/262.5 ML IV.SOLN IVPB SCH (18:38)
[2021-05-17] MEDS ORDERED: Insulin DETEMIR 100 UNIT/ML X5UNITS SUBQ SCH (21:00)
[2021-05-18 03:28] LABS: Hematocrit 37.2 % (37.5-50.1); Hemoglobin 11.8 g/dL (12.9-16.9); Mean Corpuscular HGB Conc 31.7 g/dL (31.6-35.5); Mean Corpuscular Hemoglobin 27.8 pg (28.0-33.3); Mean Corpuscular Volume 87.7 fL (83.0-100.0); Platelet Count 313 K/mcL (140-400); Red Blood Count 4.24 M/mcL (4.19-5.50); White Blood Count 9.2 K/mcL (4.3-11.1)
[2021-05-18 03:47] LABS: Calcium 8.7 mg/dL (8.6-10.3)
[2021-05-18] MEDS: Cefepime HCl 2,000 MG in 0.9 % Sodium Chloride Mini Bag 100 ML IVPB SCH (05:48)
[2021-05-18] MEDS: *HR* Heparin 5,000 UNIT/ML VIAL SQ SCH ×2 (05:54→17:35)
[2021-05-18] MEDS: Vancomycin 1,250 MG/262.5 ML IV.SOLN IVPB SCH ×2 (06:21→20:09)
[2021-05-18] MEDS: Aspirin 81 MG TAB.CHEW PO SCH (08:35)
[2021-05-18] MEDS: Lactobacillus 1 EACH CAP.SPRINK PO SCH ×2 (08:35→20:09)
[2021-05-18] MEDS: metroNIDAZOLE 500 MG TABLET PO SCH ×3 (08:35→20:08)
[2021-05-18] MEDS: Sacubitril/Valsartan 24/26 MG 1 TABLET PO SCH ×2 (08:35→20:11)
[2021-05-18] MEDS: Metoprolol XL (24 HR) Succ 50 MG TAB.ER.24H PO SCH (08:35)
[2021-05-18] MEDS: Insulin DETEMIR 100 UNIT/ML X5UNITS SUBQ SCH (08:48)
[2021-05-18] MEDS: Insulin LISPRO 300 UNITS/3 ML VIAL SUBQ SCH ×4 (08:48→20:20)
[2021-05-18] MEDS ORDERED: Famotidine 20 MG/2 ML VIAL IVP ONE (15:10)
[2021-05-18] MEDS ORDERED: Metoclopramide 10 MG/2 ML VIAL IVP ONE ×3 (15:11→18:12)
[2021-05-18] MEDS ORDERED: *HR* FentaNYL (PF) 100 MCG/2 ML VIAL ONE (15:25)
[2021-05-18] MEDS ORDERED: Lidocaine HCL 4 ML Topical Solution (Laryng-O-Jet Kit Sterile Pak) TP ONE (15:26)
[2021-05-18] MEDS ORDERED: Lidocaine -MPF 2% 5 ML VIAL ONE (15:28)
[2021-05-18] MEDS ORDERED: Lidocaine -MPF 1% 5 ML AMPUL INFILT ONE ×2 (15:37→18:12)
[2021-05-18] MEDS ORDERED: *HR* Propofol 200 MG/20 ML VIAL IVP ONE ×2 (15:45→15:53)
[2021-05-18] MEDS ORDERED: Insulin LISPRO 300 UNITS/3 ML VIAL SUBQ SCH (17:00)
[2021-05-18] MEDS ORDERED: Insulin DETEMIR 100 UNIT/ML X5UNITS SUBQ ONE (17:43)
[2021-05-18] MEDS ORDERED: D5% in Water 1,000 ML IVC PRN (18:12)
[2021-05-18] MEDS ORDERED: *HR* Dextrose 50 % in Water (Syg) 50 ML SYRINGE IVP PRN (18:12)
[2021-05-18] MEDS ORDERED: Dextrose Gel 15 GM/37.5 ML TUBE PO PRN ×2 (18:12)
[2021-05-18] MEDS ORDERED: Naloxone 0.4 MG/ML INJ IVP PRN (18:12)
[2021-05-18] MEDS ORDERED: Acetaminophen 325 MG TABLET PO PRN (18:12)
[2021-05-18] MEDS ORDERED: Gabapentin 300 MG CAPSULE PO PRN (18:12)
[2021-05-18] MEDS ORDERED: Ondansetron 4 MG/2 ML VIAL IVP PRN (18:12)
[2021-05-18] MEDS ORDERED: Melatonin 3 MG TABLET PO PRN (18:12)
[2021-05-19 04:41] LABS: Hematocrit 33.3 % (37.5-50.1); Hemoglobin 10.7 g/dL (12.9-16.9); Mean Corpuscular HGB Conc 32.1 g/dL (31.6-35.5); Mean Corpuscular Hemoglobin 27.8 pg (28.0-33.3); Mean Corpuscular Volume 86.5 fL (83.0-100.0); Mean Platelet Volume 10.2 fL (9.4-12.4); Platelet Count 299 K/mcL (140-400); Red Blood Count 3.85 M/mcL (4.19-5.50); White Blood Count 11.9 K/mcL (4.3-11.1)
[2021-05-19] MEDS: *HR* Heparin 5,000 UNIT/ML VIAL SQ SCH ×2 (04:42→18:34)
[2021-05-19 04:58] LABS: BUN/Creatinine Ratio 10 (6-26); Blood Urea Nitrogen 12 mg/dL (8-23); Calcium 8.6 mg/dL (8.6-10.3); Carbon Dioxide 25 mEq/L (23-29); Chloride 101 mEq/L (98-107); Glucose 156 mg/dL (70-105); Osmolality,Calculated 281 (280-300); Potassium 3.8 mEq/L (3.5-5.1); Sodium 134 mEq/L (136-145); eGFR For African Americans > 60 (> 60); eGFR For Non-African Americans 58 (> 60)
[2021-05-19] MEDS: Sacubitril/Valsartan 24/26 MG 1 TABLET PO SCH ×2 (08:40→19:55)
[2021-05-19] MEDS: Lactobacillus 1 EACH CAP.SPRINK PO SCH ×2 (08:40→19:55)
[2021-05-19] MEDS: metroNIDAZOLE 500 MG TABLET PO SCH ×3 (08:40→19:59)
[2021-05-19] MEDS: Metoprolol XL (24 HR) Succ 50 MG TAB.ER.24H PO SCH (08:40)
[2021-05-19] MEDS: Insulin LISPRO 300 UNITS/3 ML VIAL SUBQ SCH ×7 (08:41→20:01)
[2021-05-19] MEDS: Aspirin 81 MG TAB.CHEW PO SCH (08:41)
[2021-05-19] MEDS: Vancomycin 1,250 MG/262.5 ML IV.SOLN IVPB SCH ×2 (08:42→19:26)
[2021-05-19] MEDS: Insulin DETEMIR 100 UNIT/ML X5UNITS SUBQ SCH (08:56)
[2021-05-19] MEDS ORDERED: Insulin DETEMIR 100 UNIT/ML X5UNITS SUBQ SCH (09:00)
[2021-05-20 01:21] LABS: Hematocrit 31.2 % (37.5-50.1); Hemoglobin 9.6 g/dL (12.9-16.9); Mean Corpuscular HGB Conc 30.8 g/dL (31.6-35.5); Mean Corpuscular Volume 87.6 fL (83.0-100.0); Mean Platelet Volume 9.9 fL (9.4-12.4); Platelet Count 300 K/mcL (140-400); Red Blood Count 3.56 M/mcL (4.19-5.50); Red Cell Distribution Width 12.9 % (11.5-14.5)
[2021-05-20 01:39] LABS: BUN/Creatinine Ratio 11 (6-26); Blood Urea Nitrogen 14 mg/dL (8-23); Calcium 8.3 mg/dL (8.6-10.3); Carbon Dioxide 24 mEq/L (23-29); Chloride 103 mEq/L (98-107); Glucose 102 mg/dL (70-105); Osmolality,Calculated 279 (280-300); Potassium 3.8 mEq/L (3.5-5.1); Sodium 134 mEq/L (136-145); eGFR For African Americans > 60 (> 60); eGFR For Non-African Americans 55 (> 60)
[2021-05-20] MEDS: Aspirin 81 MG TAB.CHEW PO SCH (08:13)
[2021-05-20] MEDS: Sacubitril/Valsartan 24/26 MG 1 TABLET PO SCH ×2 (08:13→21:00)
[2021-05-20] MEDS: *HR* Heparin 5,000 UNIT/ML VIAL SQ SCH ×2 (08:13→17:06)
[2021-05-20] MEDS: Lactobacillus 1 EACH CAP.SPRINK PO SCH ×2 (08:13→21:00)
[2021-05-20] MEDS: metroNIDAZOLE 500 MG TABLET PO SCH ×3 (08:14→21:00)
[2021-05-20] MEDS: Metoprolol XL (24 HR) Succ 50 MG TAB.ER.24H PO SCH (08:14)
[2021-05-20] MEDS: Insulin LISPRO 300 UNITS/3 ML VIAL SUBQ SCH ×7 (08:16→21:01)
[2021-05-20] MEDS: Insulin DETEMIR 100 UNIT/ML X5UNITS SUBQ SCH (08:19)
[2021-05-21 03:21] LABS: Hematocrit 33.2 % (37.5-50.1); Hemoglobin 10.1 g/dL (12.9-16.9); Mean Corpuscular HGB Conc 30.4 g/dL (31.6-35.5); Mean Corpuscular Volume 88.8 fL (83.0-100.0); Mean Platelet Volume 10.3 fL (9.4-12.4); Platelet Count 309 K/mcL (140-400); Red Blood Count 3.74 M/mcL (4.19-5.50); Red Cell Distribution Width 12.9 % (11.5-14.5); White Blood Count 9.1 K/mcL (4.3-11.1)
[2021-05-21 03:29] LABS: INR 1.4; Prothrombin Time 15.6 Seconds (9.4-12.1)
[2021-05-21 03:37] LABS: BUN/Creatinine Ratio 10 (6-26); Blood Urea Nitrogen 14 mg/dL (8-23); Calcium 8.3 mg/dL (8.6-10.3); Carbon Dioxide 26 mEq/L (23-29); Chloride 105 mEq/L (98-107); Glucose 139 mg/dL (70-105); Osmolality,Calculated 281 (280-300); Potassium 4.1 mEq/L (3.5-5.1); Sodium 134 mEq/L (136-145); eGFR For African Americans > 60 (> 60); eGFR For Non-African Americans 51 (> 60)
[2021-05-21] MEDS: *HR* Heparin 5,000 UNIT/ML VIAL SQ SCH ×2 (06:52→16:51)
[2021-05-21] MEDS: Insulin LISPRO 300 UNITS/3 ML VIAL SUBQ SCH ×7 (08:34→22:02)
[2021-05-21] MEDS: Sacubitril/Valsartan 24/26 MG 1 TABLET PO SCH ×2 (08:34→22:02)
[2021-05-21] MEDS: Aspirin 81 MG TAB.CHEW PO SCH (08:34)
[2021-05-21] MEDS: Lactobacillus 1 EACH CAP.SPRINK PO SCH ×2 (08:34→22:02)
[2021-05-21] MEDS: metroNIDAZOLE 500 MG TABLET PO SCH ×3 (08:34→22:02)
[2021-05-21] MEDS: Metoprolol XL (24 HR) Succ 50 MG TAB.ER.24H PO SCH (08:34)
[2021-05-21] MEDS: Insulin DETEMIR 100 UNIT/ML X5UNITS SUBQ SCH (08:37)
[2021-05-22 02:28] LABS: Hematocrit 32.1 % (37.5-50.1); Hemoglobin 10.1 g/dL (12.9-16.9); Mean Corpuscular HGB Conc 31.5 g/dL (31.6-35.5); Mean Corpuscular Hemoglobin 27.6 pg (28.0-33.3); Mean Corpuscular Volume 87.7 fL (83.0-100.0); Mean Platelet Volume 10.2 fL (9.4-12.4); Platelet Count 309 K/mcL (140-400); Red Blood Count 3.66 M/mcL (4.19-5.50); Red Cell Distribution Width 13.2 % (11.5-14.5); White Blood Count 9.1 K/mcL (4.3-11.1)
[2021-05-22 02:35] LABS: INR 1.3; Prothrombin Time 14.3 Seconds (9.4-12.1)
[2021-05-22 02:43] LABS: BUN/Creatinine Ratio 13 (6-26); Blood Urea Nitrogen 17 mg/dL (8-23); Calcium 8.6 mg/dL (8.6-10.3); Carbon Dioxide 25 mEq/L (23-29); Chloride 102 mEq/L (98-107); Glucose 211 mg/dL (70-105); Osmolality,Calculated 286 (280-300); Potassium 3.9 mEq/L (3.5-5.1); Sodium 134 mEq/L (136-145); eGFR For African Americans > 60 (> 60); eGFR For Non-African Americans 58 (> 60)
[2021-05-22] MEDS: *HR* Heparin 5,000 UNIT/ML VIAL SQ SCH ×2 (06:21→17:16)
[2021-05-22] MEDS: Sacubitril/Valsartan 24/26 MG 1 TABLET PO SCH ×2 (10:36→20:38)
[2021-05-22] MEDS: Aspirin 81 MG TAB.CHEW PO SCH (10:36)
[2021-05-22] MEDS: Insulin LISPRO 300 UNITS/3 ML VIAL SUBQ SCH ×7 (10:36→20:28)
[2021-05-22] MEDS: Lactobacillus 1 EACH CAP.SPRINK PO SCH ×2 (10:36→20:38)
[2021-05-22] MEDS: Metoprolol XL (24 HR) Succ 50 MG TAB.ER.24H PO SCH (10:36)
[2021-05-22] MEDS: Insulin DETEMIR 100 UNIT/ML X5UNITS SUBQ SCH (10:37)
[2021-05-22] MEDS: metroNIDAZOLE 500 MG TABLET PO SCH ×3 (10:43→20:38)
[2021-05-22] MEDS: Micafungin 100 MG in 0.9 % Sodium Chloride Mini Bag 100 ML IVPB SCH (14:45)
[2021-05-23] MEDS: *HR* Heparin 5,000 UNIT/ML VIAL SQ SCH ×2 (04:15→18:16)
[2021-05-23 08:01] LABS: Hematocrit 31.5 % (37.5-50.1); Hemoglobin 9.8 g/dL (12.9-16.9); Mean Corpuscular HGB Conc 31.1 g/dL (31.6-35.5); Mean Corpuscular Hemoglobin 27.7 pg (28.0-33.3); Mean Platelet Volume 10.3 fL (9.4-12.4); Platelet Count 296 K/mcL (140-400); Red Blood Count 3.54 M/mcL (4.19-5.50); Red Cell Distribution Width 13.2 % (11.5-14.5); White Blood Count 8.9 K/mcL (4.3-11.1)
[2021-05-23 08:07] LABS: INR 1.3
[2021-05-23 08:14] LABS: BUN/Creatinine Ratio 15 (6-26); Blood Urea Nitrogen 19 mg/dL (8-23); Calcium 8.7 mg/dL (8.6-10.3); Carbon Dioxide 26 mEq/L (23-29); Chloride 103 mEq/L (98-107); Glucose 187 mg/dL (70-105); Osmolality,Calculated 285 (280-300); Potassium 4.2 mEq/L (3.5-5.1); Sodium 134 mEq/L (136-145); eGFR For African Americans > 60 (> 60); eGFR For Non-African Americans 55 (> 60)
[2021-05-23] MEDS: Micafungin 100 MG in 0.9 % Sodium Chloride Mini Bag 100 ML IVPB SCH (08:54)
[2021-05-23] MEDS: Lactobacillus 1 EACH CAP.SPRINK PO SCH ×2 (08:55→19:58)
[2021-05-23] MEDS: Sacubitril/Valsartan 24/26 MG 1 TABLET PO SCH ×2 (08:55→19:58)
[2021-05-23] MEDS: Aspirin 81 MG TAB.CHEW PO SCH (08:55)
[2021-05-23] MEDS: metroNIDAZOLE 500 MG TABLET PO SCH ×3 (08:55→19:58)
[2021-05-23] MEDS: Metoprolol XL (24 HR) Succ 50 MG TAB.ER.24H PO SCH (08:55)
[2021-05-23] MEDS: Insulin LISPRO 300 UNITS/3 ML VIAL SUBQ SCH ×7 (08:56→20:30)
[2021-05-23] MEDS ORDERED: Insulin DETEMIR 100 UNIT/ML X5UNITS SUBQ SCH (09:00)
[2021-05-23] MEDS ORDERED: Fluconazole 100 MG TABLET PO ONE (11:15)
[2021-05-23] MEDS ORDERED: Fluconazole 400 MG/200 ML 400 MG/200 ML BAG IVPB SCH (13:00)
[2021-05-23] MEDS ORDERED: Insulin DETEMIR 100 UNIT/ML X5UNITS SUBQ ONE (16:20)
[2021-05-24 02:09] LABS: Hematocrit 31.5 % (37.5-50.1); Hemoglobin 9.6 g/dL (12.9-16.9); Mean Corpuscular HGB Conc 30.5 g/dL (31.6-35.5); Mean Corpuscular Volume 88.5 fL (83.0-100.0); Mean Platelet Volume 10.1 fL (9.4-12.4); Platelet Count 303 K/mcL (140-400); Red Blood Count 3.56 M/mcL (4.19-5.50); Red Cell Distribution Width 13.3 % (11.5-14.5); White Blood Count 8.4 K/mcL (4.3-11.1)
[2021-05-24 02:29] LABS: BUN/Creatinine Ratio 18 (6-26); Blood Urea Nitrogen 22 mg/dL (8-23); Calcium 8.8 mg/dL (8.6-10.3); Carbon Dioxide 25 mEq/L (23-29); Chloride 103 mEq/L (98-107); Glucose 151 mg/dL (70-105); Osmolality,Calculated 286 (280-300); Potassium 3.9 mEq/L (3.5-5.1); Sodium 135 mEq/L (136-145); eGFR For African Americans > 60 (> 60); eGFR For Non-African Americans 59 (> 60)
[2021-05-24 03:08] LABS: INR 1.2; Prothrombin Time 13.7 Seconds (9.4-12.1)
[2021-05-24] MEDS: *HR* Heparin 5,000 UNIT/ML VIAL SQ SCH ×2 (05:50→17:44)
[2021-05-24] MEDS ORDERED: Fluconazole 400 MG/200 ML 400 MG/200 ML BAG IVPB SCH ×2 (07:00→13:00)
[2021-05-24] MEDS ORDERED: Insulin DETEMIR 100 UNIT/ML X5UNITS SUBQ SCH (09:00)
[2021-05-24] MEDS: Sacubitril/Valsartan 24/26 MG 1 TABLET PO SCH (09:03)
[2021-05-24] MEDS: Lactobacillus 1 EACH CAP.SPRINK PO SCH (09:03)
[2021-05-24] MEDS: Aspirin 81 MG TAB.CHEW PO SCH (09:03)
[2021-05-24] MEDS: Metoprolol XL (24 HR) Succ 50 MG TAB.ER.24H PO SCH (09:03)
[2021-05-24] MEDS: metroNIDAZOLE 500 MG TABLET PO SCH ×2 (09:03→15:43)
[2021-05-24] MEDS: Insulin LISPRO 300 UNITS/3 ML VIAL SUBQ SCH ×6 (09:04→17:45)
[2021-05-24 15:07] VITALS: BP 135/76; PULSE 79; TEMP 97.8; O2SAT 95
== END 2021-05-24 21:05 | disposition home health service (06) | DRG 853 ==
LOC: 3NENU → SUATTDRO 18:40
PROVIDERS: ADMIT Family Medicine; ATTEND Internal Medicine

== ENCOUNTER 2021-07-14 20:40 | Inpatient (IN) ==
[2021-07-14] MEDS ORDERED: *HR* OxyCODONE Immed Rel 5 MG TABLET PO ONE (23:28)
[2021-07-15] MEDS ORDERED: Dextrose 4 GM Chewable Tablets PO PRN ×2 (00:42)
[2021-07-15] MEDS ORDERED: *HR* Dextrose 50 % in Water (Syg) 50 ML SYRINGE IVP PRN (00:42)
[2021-07-15] MEDS ORDERED: D5% in Water 1,000 ML IVC PRN (00:42)
[2021-07-15] MEDS ORDERED: Gabapentin 300 MG CAPSULE PO PRN (01:02)
[2021-07-15] MEDS ORDERED: Naloxone 0.4 MG/ML INJ IVP PRN (01:11)
[2021-07-15] MEDS ORDERED: Ondansetron 4 MG/2 ML VIAL IVP PRN (01:11)
[2021-07-15] MEDS ORDERED: Vancomycin 1,500 MG/265 ML IV.SOLN IVPB ONE (03:00)
[2021-07-15] MEDS: Insulin DETEMIR 100 UNIT/ML X5UNITS SUBQ SCH ×2 (03:02→21:49)
[2021-07-15 03:26] LABS: Hematocrit 36.2 % (37.5-50.1); Hemoglobin 11.6 g/dL (12.9-16.9); Mean Corpuscular Hemoglobin 26.6 pg (28.0-33.3); Mean Platelet Volume 10.7 fL (9.4-12.4); Platelet Count 252 K/mcL (140-400); Red Blood Count 4.36 M/mcL (4.19-5.50); Red Cell Distribution Width 14.1 % (11.5-14.5); White Blood Count 11.8 K/mcL (4.3-11.1)
[2021-07-15 03:30] LABS: Estimated Average Glucose 169 mg/dl; Hemoglobin A1C 7.5 %
[2021-07-15 03:34] LABS: INR 1.8; Prothrombin Time 19.6 Seconds (9.4-12.1)
[2021-07-15 03:37] LABS: Activated Partial Thrombo Time 39.7 Seconds (26.0-36.0)
[2021-07-15 03:47] LABS: Calcium 9.3 mg/dL (8.6-10.3); Chol/HDL Ratio 4.7 (0-4.9); Magnesium 1.9 mg/dL (1.6-2.6); Potassium 3.8 mEq/L (3.5-5.1)
[2021-07-15 03:51] LABS: Troponin I 0.06 ng/mL (< 0.04)
[2021-07-15] MEDS ORDERED: Vancomycin 1,250 MG/262.5 ML IV.SOLN IVPB SCH (04:00)
[2021-07-15] MEDS ORDERED: Albumin 25% 25gram/100mL 25 GM/100 ML IV.SOLN IVPB ONE ×2 (04:03→17:34)
[2021-07-15] MEDS ORDERED: *HR* OxyCODONE Immed Rel 5 MG TABLET PO SCH (06:00)
[2021-07-15] MEDS: Insulin LISPRO 300 UNITS/3 ML VIAL SUBQ SCH ×4 (06:25→21:49)
[2021-07-15] MEDS: Piperacillin/Tazobactam 3.375 GM in 0.9 % Sodium Chloride Mini Bag 100 ML IVPB SCH ×2 (08:57→16:32)
[2021-07-15] MEDS: Aspirin Enteric Coated 81 MG Tablet PO SCH (08:58)
[2021-07-15] MEDS ORDERED: Metoprolol XL (24 HR) Succ 50 MG TAB.ER.24H PO SCH (09:00)
[2021-07-15] MEDS: *HR* HYDROcodone/Acet 5/325 mg TABLET PO PRN ×2 (09:08→19:33)
[2021-07-15] MEDS: Sacubitril/Valsartan 24/26 MG 1 TABLET PO SCH (09:52)
[2021-07-15] MEDS ORDERED: Ringers Solution, Lactated 1,000 ML IVC ONE (13:44)
[2021-07-15] MEDS ORDERED: Acetaminophen IV 1,000 MG/100 ML BAG IVPB ONE (13:49)
[2021-07-15] MEDS: 0.9 % Sodium Chloride 1,000 ML IVC SCH (16:33)
[2021-07-15] MEDS: Fluconazole 400 MG/200 ML 400 MG/200 ML BAG IVPB SCH ×2 (17:18→19:34)
[2021-07-15] MEDS: Lactobacillus 1 EACH CAP.SPRINK PO SCH (21:49)
[2021-07-15] MEDS: *HR* OxyCODONE Immed Rel 5 MG TABLET PO PRN (21:49)
[2021-07-16] MEDS: Piperacillin/Tazobactam 3.375 GM in 0.9 % Sodium Chloride Mini Bag 100 ML IVPB SCH ×3 (00:15→15:40)
[2021-07-16] MEDS: *HR* HYDROcodone/Acet 5/325 mg TABLET PO PRN (01:33)
[2021-07-16 01:51] LABS: Hematocrit 33.9 % (37.5-50.1); Hemoglobin 10.8 g/dL (12.9-16.9); Mean Corpuscular HGB Conc 31.9 g/dL (31.6-35.5); Mean Corpuscular Hemoglobin 27.1 pg (28.0-33.3); Mean Platelet Volume 10.4 fL (9.4-12.4); Platelet Count 215 K/mcL (140-400); Red Blood Count 3.99 M/mcL (4.19-5.50); Red Cell Distribution Width 13.7 % (11.5-14.5); White Blood Count 8.2 K/mcL (4.3-11.1)
[2021-07-16 03:06] LABS: BUN/Creatinine Ratio 13 (6-26); Blood Urea Nitrogen 17 mg/dL (8-23); Calcium 9.1 mg/dL (8.6-10.3); Carbon Dioxide 25 mEq/L (23-29); Chloride 103 mEq/L (98-107); Glucose 185 mg/dL (70-105); Osmolality,Calculated 286 (280-300); Potassium 4.2 mEq/L (3.5-5.1); Sodium 135 mEq/L (136-145); eGFR For African Americans > 60 (> 60); eGFR For Non-African Americans 54 (> 60)
[2021-07-16 03:09] LABS: Troponin I 0.05 ng/mL (< 0.04)
[2021-07-16 03:41] LABS: Thyroid Stimulating Hormone 1.218 mcIU/mL (0.340-5.600)
[2021-07-16] MEDS: *HR* OxyCODONE Immed Rel 5 MG TABLET PO PRN ×3 (05:23→19:38)
[2021-07-16] MEDS: Vancomycin 1,500 MG/265 ML IV.SOLN IVPB SCH (05:23)
[2021-07-16] MEDS: Insulin LISPRO 300 UNITS/3 ML VIAL SUBQ SCH ×4 (07:26→19:40)
[2021-07-16] MEDS: Aspirin Enteric Coated 81 MG Tablet PO SCH (07:44)
[2021-07-16] MEDS: Lactobacillus 1 EACH CAP.SPRINK PO SCH ×2 (07:44→19:38)
[2021-07-16] MEDS ORDERED: Fluconazole 400 MG/200 ML 400 MG/200 ML BAG IVPB SCH (09:00)
[2021-07-16] MEDS: Fluconazole 400 MG/200 ML 400 MG/200 ML BAG IVPB SCH (10:37)
[2021-07-16] MEDS: 0.9 % Sodium Chloride 1,000 ML IVC SCH ×2 (12:12→22:19)
[2021-07-16] MEDS: Acetaminophen 325 MG TABLET PO PRN (15:39)
[2021-07-16] MEDS: Insulin DETEMIR 100 UNIT/ML X5UNITS SUBQ SCH (19:39)
[2021-07-17] MEDS: Piperacillin/Tazobactam 3.375 GM in 0.9 % Sodium Chloride Mini Bag 100 ML IVPB SCH ×3 (00:36→15:18)
[2021-07-17] MEDS: *HR* OxyCODONE Immed Rel 5 MG TABLET PO PRN ×3 (04:56→20:03)
[2021-07-17 05:27] LABS: Hematocrit 30.9 % (37.5-50.1); Hemoglobin 10.2 g/dL (12.9-16.9); Mean Corpuscular Hemoglobin 27.4 pg (28.0-33.3); Mean Corpuscular Volume 83.1 fL (83.0-100.0); Mean Platelet Volume 10.4 fL (9.4-12.4); Platelet Count 237 K/mcL (140-400); Red Blood Count 3.72 M/mcL (4.19-5.50); Red Cell Distribution Width 14.1 % (11.5-14.5); White Blood Count 9.7 K/mcL (4.3-11.1)
[2021-07-17 06:11] LABS: Folate 11.6 ng/mL (3.0-16.0)
[2021-07-17 06:18] LABS: BUN/Creatinine Ratio 12 (6-26); Blood Urea Nitrogen 14 mg/dL (8-23); Calcium 8.6 mg/dL (8.6-10.3); Carbon Dioxide 20 mEq/L (23-29); Chloride 105 mEq/L (98-107); Ferritin 232 ng/mL (20-250); Glucose 161 mg/dL (70-105); Iron < 10 mcg/dL (65-175); Magnesium 1.7 mg/dL (1.6-2.6); Osmolality,Calculated 284 (280-300); Potassium 3.7 mEq/L (3.5-5.1); Sodium 135 mEq/L (136-145); Transferrin 151 mg/dL (203-362); Vancomycin,Trough 9 mcg/mL (5-10); eGFR For African Americans > 60 (> 60); eGFR For Non-African Americans > 60 (> 60)
[2021-07-17] MEDS: Vancomycin 1,500 MG/265 ML IV.SOLN IVPB SCH (06:24)
[2021-07-17] MEDS: 0.9 % Sodium Chloride 1,000 ML IVC SCH ×2 (07:27→12:11)
[2021-07-17] MEDS: Insulin LISPRO 300 UNITS/3 ML VIAL SUBQ SCH ×4 (09:03→20:02)
[2021-07-17] MEDS: Fluconazole 400 MG/200 ML 400 MG/200 ML BAG IVPB SCH (09:26)
[2021-07-17] MEDS: Sacubitril/Valsartan 24/26 MG 1 TABLET PO SCH ×2 (09:27→20:02)
[2021-07-17] MEDS: *HR* HYDROcodone/Acet 5/325 mg TABLET PO PRN (09:27)
[2021-07-17] MEDS: Aspirin Enteric Coated 81 MG Tablet PO SCH (09:27)
[2021-07-17] MEDS: polyethylene glycoL 3350 17 GM POWD.PACK PO SCH (09:27)
[2021-07-17] MEDS: Lactobacillus 1 EACH CAP.SPRINK PO SCH ×2 (09:27→20:01)
[2021-07-17] MEDS: Metoprolol XL (24 HR) Succ 25 MG TAB.ER.24H PO SCH (09:27)
[2021-07-17] MEDS: Vancomycin 1,250 MG/262.5 ML IV.SOLN IVPB SCH (17:38)
[2021-07-17] MEDS: Insulin DETEMIR 100 UNIT/ML X5UNITS SUBQ SCH (20:02)
[2021-07-18] MEDS: 0.9 % Sodium Chloride 1,000 ML IVC SCH (00:05)
[2021-07-18] MEDS: Piperacillin/Tazobactam 3.375 GM in 0.9 % Sodium Chloride Mini Bag 100 ML IVPB SCH ×3 (00:06→16:11)
[2021-07-18] MEDS: *HR* HYDROcodone/Acet 5/325 mg TABLET PO PRN (01:07)
[2021-07-18] MEDS: *HR* OxyCODONE Immed Rel 5 MG TABLET PO PRN ×4 (02:19→22:21)
[2021-07-18] MEDS: Vancomycin 1,250 MG/262.5 ML IV.SOLN IVPB SCH ×2 (05:33→18:03)
[2021-07-18] MEDS: Insulin LISPRO 300 UNITS/3 ML VIAL SUBQ SCH ×4 (08:10→19:32)
[2021-07-18] MEDS: Metoprolol XL (24 HR) Succ 25 MG TAB.ER.24H PO SCH (08:58)
[2021-07-18] MEDS: Sacubitril/Valsartan 24/26 MG 1 TABLET PO SCH ×2 (08:58→19:31)
[2021-07-18] MEDS: Aspirin Enteric Coated 81 MG Tablet PO SCH (08:58)
[2021-07-18] MEDS: Lactobacillus 1 EACH CAP.SPRINK PO SCH ×2 (08:58→19:31)
[2021-07-18 09:32] LABS: Basophils % 0.4 %; Eosinophils # 0.2 K/mcL (0.0-0.6); Hematocrit 33.9 % (37.5-50.1); Hemoglobin 10.5 g/dL (12.9-16.9); Immature Granulocytes % 0.4 % (0-4); Lymphocytes # 1.4 K/mcL (0.6-4.6); Lymphocytes % 17.8 %; Mean Corpuscular Hemoglobin 26.6 pg (28.0-33.3); Mean Corpuscular Volume 85.8 fL (83.0-100.0); Mean Platelet Volume 10.3 fL (9.4-12.4); Monocytes # 0.5 K/mcL (0.0-1.3); Monocytes % 6.3 %; Neutrophils # 5.9 K/mcL (1.6-8.9); Platelet Count 255 K/mcL (140-400); Red Blood Count 3.95 M/mcL (4.19-5.50); Red Cell Distribution Width 14.2 % (11.5-14.5); Segmented Neutrophils % 72.1 %; White Blood Count 8.1 K/mcL (4.3-11.1)
[2021-07-18 09:49] LABS: BUN/Creatinine Ratio 8 (6-26); Blood Urea Nitrogen 10 mg/dL (8-23); Calcium 8.9 mg/dL (8.6-10.3); Carbon Dioxide 24 mEq/L (23-29); Chloride 104 mEq/L (98-107); Magnesium 1.7 mg/dL (1.6-2.6); Potassium 3.6 mEq/L (3.5-5.1); Sodium 135 mEq/L (136-145); eGFR For African Americans > 60 (> 60); eGFR For Non-African Americans 58 (> 60)
[2021-07-18 09:51] LABS: Glucose 166 mg/dL (70-105); Osmolality,Calculated 283 (280-300)
[2021-07-18] MEDS: polyethylene glycoL 3350 17 GM POWD.PACK PO SCH (16:13)
[2021-07-18] MEDS: Fluconazole 400 MG/200 ML 400 MG/200 ML BAG IVPB SCH (16:19)
[2021-07-18] MEDS: Insulin DETEMIR 100 UNIT/ML X5UNITS SUBQ SCH (19:32)
[2021-07-19] MEDS: Piperacillin/Tazobactam 3.375 GM in 0.9 % Sodium Chloride Mini Bag 100 ML IVPB SCH ×4 (00:04→23:53)
[2021-07-19 05:34] LABS: Basophils % 0.6 %; Eosinophils # 0.4 K/mcL (0.0-0.6); Eosinophils % 6.2 %; Hematocrit 31.3 % (37.5-50.1); Hemoglobin 10.1 g/dL (12.9-16.9); Immature Granulocytes % 0.3 % (0-4); Lymphocytes % 16.2 %; Mean Corpuscular HGB Conc 32.3 g/dL (31.6-35.5); Mean Corpuscular Hemoglobin 27.3 pg (28.0-33.3); Mean Corpuscular Volume 84.6 fL (83.0-100.0); Mean Platelet Volume 10.3 fL (9.4-12.4); Monocytes # 0.5 K/mcL (0.0-1.3); Monocytes % 8.3 %; Neutrophils # 4.3 K/mcL (1.6-8.9); Platelet Count 248 K/mcL (140-400); Red Cell Distribution Width 14.2 % (11.5-14.5); Segmented Neutrophils % 68.4 %; White Blood Count 6.3 K/mcL (4.3-11.1)
[2021-07-19 05:42] LABS: BUN/Creatinine Ratio 9 (6-26); Blood Urea Nitrogen 10 mg/dL (8-23); Calcium 8.9 mg/dL (8.6-10.3); Carbon Dioxide 23 mEq/L (23-29); Chloride 106 mEq/L (98-107); Glucose 117 mg/dL (70-105); Magnesium 1.8 mg/dL (1.6-2.6); Osmolality,Calculated 284 (280-300); Potassium 3.6 mEq/L (3.5-5.1); Sodium 137 mEq/L (136-145); eGFR For African Americans > 60 (> 60); eGFR For Non-African Americans > 60 (> 60)
[2021-07-19] MEDS: Vancomycin 1,250 MG/262.5 ML IV.SOLN IVPB SCH ×2 (06:34→18:27)
[2021-07-19] MEDS: 0.9 % Sodium Chloride 1,000 ML IVC SCH ×4 (08:12→18:33)
[2021-07-19] MEDS: Sacubitril/Valsartan 24/26 MG 1 TABLET PO SCH ×2 (08:49→20:32)
[2021-07-19] MEDS: Aspirin Enteric Coated 81 MG Tablet PO SCH (08:49)
[2021-07-19] MEDS: Lactobacillus 1 EACH CAP.SPRINK PO SCH ×2 (08:49→20:32)
[2021-07-19] MEDS: Insulin LISPRO 300 UNITS/3 ML VIAL SUBQ SCH ×4 (08:49→20:33)
[2021-07-19] MEDS: Metoprolol XL (24 HR) Succ 25 MG TAB.ER.24H PO SCH (08:49)
[2021-07-19] MEDS: polyethylene glycoL 3350 17 GM POWD.PACK PO SCH (08:51)
[2021-07-19] MEDS: *HR* HYDROcodone/Acet 5/325 mg TABLET PO PRN (09:00)
[2021-07-19] MEDS ORDERED: *HR* OxyCODONE Immed Rel 5 MG TABLET PO ONE (12:08)
[2021-07-19] MEDS ORDERED: *HR* Midazolam HCl 2 MG/2 ML VIAL ONE (12:18)
[2021-07-19] MEDS ORDERED: *HR* FentaNYL (PF) 100 MCG/2 ML VIAL ONE (12:18)
[2021-07-19] MEDS ORDERED: *HR* Propofol 200 MG/20 ML VIAL IVP ONE (12:18)
[2021-07-19] MEDS ORDERED: Lidocaine -MPF 2% 5 ML VIAL ONE (12:18)
[2021-07-19] MEDS ORDERED: Ketamine HCL *QUVA* 50mg (1mL) SYRINGE ONE (12:20)
[2021-07-19] MEDS ORDERED: Lidocaine 1% 0 ML ONE (12:27)
[2021-07-19] MEDS ORDERED: Ondansetron 4 MG/2 ML VIAL ONE (13:19)
[2021-07-19] MEDS: Fluconazole 400 MG/200 ML 400 MG/200 ML BAG IVPB SCH (16:47)
[2021-07-19] MEDS: Insulin DETEMIR 100 UNIT/ML X5UNITS SUBQ SCH (20:32)
[2021-07-19] MEDS: *HR* OxyCODONE Immed Rel 5 MG TABLET PO PRN (20:32)
[2021-07-20 05:08] LABS: Immature Granulocytes % 0.5 % (0-4); Lymphocytes # 0.8 K/mcL (0.6-4.6); Lymphocytes % 12.6 %; Mean Corpuscular HGB Conc 31.3 g/dL (31.6-35.5); Mean Corpuscular Hemoglobin 26.2 pg (28.0-33.3); Monocytes # 0.1 K/mcL (0.0-1.3); Monocytes % 2.2 %; Neutrophils # 5.1 K/mcL (1.6-8.9); Platelet Count 269 K/mcL (140-400); Red Blood Count 3.81 M/mcL (4.19-5.50); Red Cell Distribution Width 13.9 % (11.5-14.5); Segmented Neutrophils % 84.7 %
[2021-07-20] MEDS: 0.9 % Sodium Chloride 1,000 ML IVC SCH (05:54)
[2021-07-20] MEDS: Vancomycin 1,250 MG/262.5 ML IV.SOLN IVPB SCH ×2 (05:56→18:13)
[2021-07-20] MEDS: Fluconazole 400 MG/200 ML 400 MG/200 ML BAG IVPB SCH ×2 (07:40→17:01)
[2021-07-20] MEDS: Lactobacillus 1 EACH CAP.SPRINK PO SCH ×2 (08:15→20:28)
[2021-07-20] MEDS: Aspirin Enteric Coated 81 MG Tablet PO SCH (08:15)
[2021-07-20] MEDS: Metoprolol XL (24 HR) Succ 25 MG TAB.ER.24H PO SCH (08:15)
[2021-07-20] MEDS: Sacubitril/Valsartan 24/26 MG 1 TABLET PO SCH ×2 (08:15→20:28)
[2021-07-20] MEDS: polyethylene glycoL 3350 17 GM POWD.PACK PO SCH (08:16)
[2021-07-20] MEDS: Piperacillin/Tazobactam 3.375 GM in 0.9 % Sodium Chloride Mini Bag 100 ML IVPB SCH ×3 (08:24→23:20)
[2021-07-20] MEDS: Insulin LISPRO 300 UNITS/3 ML VIAL SUBQ SCH ×3 (08:26→17:00)
[2021-07-20] MEDS: Insulin DETEMIR 100 UNIT/ML X5UNITS SUBQ SCH ×2 (08:36→20:28)
[2021-07-20 08:48] LABS: BUN/Creatinine Ratio 14 (6-26); Blood Urea Nitrogen 17 mg/dL (8-23); Calcium 8.3 mg/dL (8.6-10.3); Carbon Dioxide 18 mEq/L (23-29); Chloride 105 mEq/L (98-107); Glucose 292 mg/dL (70-105); Magnesium 1.8 mg/dL (1.6-2.6); Osmolality,Calculated 290 (280-300); Potassium 4.1 mEq/L (3.5-5.1); Sodium 134 mEq/L (136-145); eGFR For African Americans > 60 (> 60); eGFR For Non-African Americans 60 (> 60)
[2021-07-20] MEDS: *HR* OxyCODONE Immed Rel 5 MG TABLET PO PRN (18:13)
[2021-07-21] MEDS: *HR* OxyCODONE Immed Rel 5 MG TABLET PO PRN ×3 (03:24→18:38)
[2021-07-21 03:45] LABS: Basophils % 0.1 %; Eosinophils % 0.1 %; Hematocrit 29.6 % (37.5-50.1); Hemoglobin 9.2 g/dL (12.9-16.9); Immature Granulocytes % 0.6 % (0-4); Lymphocytes # 1.3 K/mcL (0.6-4.6); Lymphocytes % 12.8 %; Mean Corpuscular HGB Conc 31.1 g/dL (31.6-35.5); Mean Corpuscular Hemoglobin 26.1 pg (28.0-33.3); Mean Corpuscular Volume 84.1 fL (83.0-100.0); Monocytes # 0.5 K/mcL (0.0-1.3); Monocytes % 4.5 %; Platelet Count 282 K/mcL (140-400); Red Blood Count 3.52 M/mcL (4.19-5.50); Red Cell Distribution Width 14.2 % (11.5-14.5); Segmented Neutrophils % 81.9 %
[2021-07-21 03:47] LABS: Neutrophils # 8.4 K/mcL (1.6-8.9); White Blood Count 10.2 K/mcL (4.3-11.1)
[2021-07-21 04:03] LABS: BUN/Creatinine Ratio 16 (6-26); Blood Urea Nitrogen 21 mg/dL (8-23); Calcium 8.2 mg/dL (8.6-10.3); Carbon Dioxide 24 mEq/L (23-29); Chloride 108 mEq/L (98-107); Glucose 214 mg/dL (70-105); Magnesium 1.8 mg/dL (1.6-2.6); Osmolality,Calculated 295 (280-300); Potassium 4.1 mEq/L (3.5-5.1); Sodium 138 mEq/L (136-145); Vancomycin,Trough 20 mcg/mL (5-10); eGFR For African Americans > 60 (> 60); eGFR For Non-African Americans 54 (> 60)
[2021-07-21] MEDS: 0.9 % Sodium Chloride 1,000 ML IVC SCH (05:49)
[2021-07-21] MEDS: Vancomycin 1,250 MG/262.5 ML IV.SOLN IVPB SCH ×2 (05:50→18:31)
[2021-07-21] MEDS: Sacubitril/Valsartan 24/26 MG 1 TABLET PO SCH (08:43)
[2021-07-21] MEDS: Metoprolol XL (24 HR) Succ 25 MG TAB.ER.24H PO SCH (08:43)
[2021-07-21] MEDS: Aspirin Enteric Coated 81 MG Tablet PO SCH (08:43)
[2021-07-21] MEDS: Lactobacillus 1 EACH CAP.SPRINK PO SCH ×2 (08:43→21:24)
[2021-07-21] MEDS: polyethylene glycoL 3350 17 GM POWD.PACK PO SCH (08:43)
[2021-07-21] MEDS: Piperacillin/Tazobactam 3.375 GM in 0.9 % Sodium Chloride Mini Bag 100 ML IVPB SCH ×3 (08:44→23:00)
[2021-07-21] MEDS: Insulin LISPRO 300 UNITS/3 ML VIAL SUBQ SCH ×3 (08:51→17:27)
[2021-07-21] MEDS: Insulin DETEMIR 100 UNIT/ML X5UNITS SUBQ SCH ×2 (08:55→21:24)
[2021-07-21] MEDS: Fluconazole 400 MG/200 ML 400 MG/200 ML BAG IVPB SCH (17:16)
[2021-07-21] MEDS ORDERED: Melatonin 3 MG TABLET PO PRN (22:21)
[2021-07-22] MEDS: *HR* OxyCODONE Immed Rel 5 MG TABLET PO PRN ×3 (02:59→22:33)
[2021-07-22 05:07] LABS: Hematocrit 30.3 % (37.5-50.1); Hemoglobin 9.3 g/dL (12.9-16.9); Immature Granulocytes % 0.9 % (0-4); Lymphocytes % 18.4 %; Mean Corpuscular HGB Conc 30.7 g/dL (31.6-35.5); Mean Corpuscular Hemoglobin 26.1 pg (28.0-33.3); Mean Corpuscular Volume 85.1 fL (83.0-100.0); Mean Platelet Volume 9.8 fL (9.4-12.4); Platelet Count 292 K/mcL (140-400); Red Blood Count 3.56 M/mcL (4.19-5.50); Red Cell Distribution Width 14.5 % (11.5-14.5); White Blood Count 8.6 K/mcL (4.3-11.1)
[2021-07-22 05:08] LABS: Basophils % 0.5 %; Eosinophils # 0.4 K/mcL (0.0-0.6); Eosinophils % 4.1 %; Lymphocytes # 1.6 K/mcL (0.6-4.6); Monocytes # 0.6 K/mcL (0.0-1.3); Monocytes % 7.1 %; Neutrophils # 5.9 K/mcL (1.6-8.9); Nucleated Red Blood Cells 0.2 /100 WBC (0)
[2021-07-22 05:27] LABS: BUN/Creatinine Ratio 12 (6-26); Blood Urea Nitrogen 15 mg/dL (8-23); Calcium 8.5 mg/dL (8.6-10.3); Carbon Dioxide 25 mEq/L (23-29); Chloride 108 mEq/L (98-107); Glucose 140 mg/dL (70-105); Magnesium 1.8 mg/dL (1.6-2.6); Osmolality,Calculated 291 (280-300); Potassium 3.6 mEq/L (3.5-5.1); Sodium 139 mEq/L (136-145); eGFR For African Americans > 60 (> 60); eGFR For Non-African Americans 57 (> 60)
[2021-07-22] MEDS: Piperacillin/Tazobactam 3.375 GM in 0.9 % Sodium Chloride Mini Bag 100 ML IVPB SCH ×3 (09:21→23:48)
[2021-07-22] MEDS: Metoprolol XL (24 HR) Succ 25 MG TAB.ER.24H PO SCH (09:21)
[2021-07-22] MEDS: Lactobacillus 1 EACH CAP.SPRINK PO SCH ×2 (09:21→20:23)
[2021-07-22] MEDS: Aspirin Enteric Coated 81 MG Tablet PO SCH (09:22)
[2021-07-22] MEDS: polyethylene glycoL 3350 17 GM POWD.PACK PO SCH (09:34)
[2021-07-22] MEDS: Insulin DETEMIR 100 UNIT/ML X5UNITS SUBQ SCH ×2 (09:42→20:23)
[2021-07-22] MEDS: Insulin LISPRO 300 UNITS/3 ML VIAL SUBQ SCH ×3 (09:44→17:49)
[2021-07-22] MEDS: Fluconazole 400 MG/200 ML 400 MG/200 ML BAG IVPB SCH (17:45)
[2021-07-22] MEDS: Vancomycin 1,250 MG/262.5 ML IV.SOLN IVPB SCH (18:38)
[2021-07-22] MEDS: Apixaban 5 MG TABLET PO SCH (20:23)
[2021-07-23 04:04] LABS: Basophils % 0.5 %; Eosinophils # 0.5 K/mcL (0.0-0.6); Eosinophils % 5.3 %; Hematocrit 30.3 % (37.5-50.1); Hemoglobin 9.8 g/dL (12.9-16.9); Immature Granulocytes % 1.1 % (0-4); Lymphocytes # 1.7 K/mcL (0.6-4.6); Lymphocytes % 20.3 %; Mean Corpuscular HGB Conc 32.3 g/dL (31.6-35.5); Mean Corpuscular Hemoglobin 27.6 pg (28.0-33.3); Mean Corpuscular Volume 85.4 fL (83.0-100.0); Monocytes # 0.6 K/mcL (0.0-1.3); Monocytes % 6.7 %; Neutrophils # 5.6 K/mcL (1.6-8.9); Platelet Count 294 K/mcL (140-400); Red Blood Count 3.55 M/mcL (4.19-5.50); Red Cell Distribution Width 14.5 % (11.5-14.5); Segmented Neutrophils % 66.1 %; White Blood Count 8.5 K/mcL (4.3-11.1)
[2021-07-23 04:19] LABS: Calcium 8.7 mg/dL (8.6-10.3); Magnesium 1.7 mg/dL (1.6-2.6); Phosphorous 4.2 mg/dL (2.7-4.5); Potassium 3.6 mEq/L (3.5-5.1)
[2021-07-23] MEDS: Insulin LISPRO 300 UNITS/3 ML VIAL SUBQ SCH ×3 (07:33→18:15)
[2021-07-23] MEDS: Apixaban 5 MG TABLET PO SCH ×2 (08:33→20:13)
[2021-07-23] MEDS: Piperacillin/Tazobactam 3.375 GM in 0.9 % Sodium Chloride Mini Bag 100 ML IVPB SCH ×2 (08:34→14:48)
[2021-07-23] MEDS: Metoprolol XL (24 HR) Succ 25 MG TAB.ER.24H PO SCH (08:34)
[2021-07-23] MEDS: polyethylene glycoL 3350 17 GM POWD.PACK PO SCH (08:34)
[2021-07-23] MEDS: Aspirin Enteric Coated 81 MG Tablet PO SCH (08:34)
[2021-07-23] MEDS: Lactobacillus 1 EACH CAP.SPRINK PO SCH ×2 (08:34→20:14)
[2021-07-23] MEDS: Insulin DETEMIR 100 UNIT/ML X5UNITS SUBQ SCH ×2 (10:25→20:14)
[2021-07-23] MEDS: *HR* OxyCODONE Immed Rel 5 MG TABLET PO PRN ×2 (14:47→21:47)
[2021-07-23] MEDS: Fluconazole 400 MG/200 ML 400 MG/200 ML BAG IVPB SCH (18:16)
[2021-07-23] MEDS: Vancomycin 1,250 MG/262.5 ML IV.SOLN IVPB SCH (18:17)
[2021-07-23 20:12] LABS: Bilirubin,Urine Negative (Negative); Blood,Urine Small (Negative); Clarity,Urine Clear (Clear); Color,Urine Colorless (Yellow); Glucose,Urine (UA) Normal (Normal); Ketones,Urine Negative (Negative); Leukocyte Esterase,Urine Negative (Negative); Mucus,Urine Few per lpf (None-Few); Nitrite,Urine Negative (Negative); PH,Urine 6.5 pH Units (5.0-8.0); Protein,Urine Negative (Neg-Trace); RBC,Urine 15-30 per hpf (0-3); Sperm,Urine Present per hpf (None Seen); Squamous Epithelial Cell,Urine Few per hpf (None-Few); Urobilinogen,Urine Normal (Normal); WBC,Urine 0-3 per hpf (0-3)
[2021-07-23] MEDS: *HR* HYDROcodone/Acet 5/325 mg TABLET PO PRN (20:14)
[2021-07-24] MEDS: Piperacillin/Tazobactam 3.375 GM in 0.9 % Sodium Chloride Mini Bag 100 ML IVPB SCH ×3 (00:09→17:49)
[2021-07-24] MEDS: *HR* OxyCODONE Immed Rel 5 MG TABLET PO PRN ×3 (04:19→18:28)
[2021-07-24] MEDS: 0.9 % Sodium Chloride 1,000 ML IVC SCH ×2 (04:20→14:57)
[2021-07-24 04:43] LABS: Basophils % 0.5 %; Eosinophils # 0.4 K/mcL (0.0-0.6); Eosinophils % 4.8 %; Hemoglobin 9.4 g/dL (12.9-16.9); Lymphocytes # 1.8 K/mcL (0.6-4.6); Lymphocytes % 22.5 %; Mean Corpuscular HGB Conc 31.3 g/dL (31.6-35.5); Mean Corpuscular Hemoglobin 26.5 pg (28.0-33.3); Mean Corpuscular Volume 84.5 fL (83.0-100.0); Monocytes # 0.5 K/mcL (0.0-1.3); Monocytes % 6.4 %; Neutrophils # 5.2 K/mcL (1.6-8.9); Platelet Count 290 K/mcL (140-400); Red Blood Count 3.55 M/mcL (4.19-5.50); Red Cell Distribution Width 14.7 % (11.5-14.5); Segmented Neutrophils % 64.8 %
[2021-07-24 05:06] LABS: Calcium 8.8 mg/dL (8.6-10.3); Potassium 3.6 mEq/L (3.5-5.1)
[2021-07-24] MEDS: Aspirin Enteric Coated 81 MG Tablet PO SCH (08:40)
[2021-07-24] MEDS: Apixaban 5 MG TABLET PO SCH ×2 (08:40→20:28)
[2021-07-24] MEDS: Lactobacillus 1 EACH CAP.SPRINK PO SCH ×2 (08:40→20:28)
[2021-07-24] MEDS: Metoprolol XL (24 HR) Succ 25 MG TAB.ER.24H PO SCH (08:41)
[2021-07-24] MEDS: Insulin LISPRO 300 UNITS/3 ML VIAL SUBQ SCH ×3 (08:42→16:49)
[2021-07-24] MEDS: polyethylene glycoL 3350 17 GM POWD.PACK PO SCH (08:42)
[2021-07-24] MEDS: Insulin DETEMIR 100 UNIT/ML X5UNITS SUBQ SCH ×2 (10:15→20:28)
[2021-07-24 15:23] LABS: % Iron Saturation 6 % (20-55); Iron 19 mcg/dL (65-175); Transferrin 221 mg/dL (203-362)
[2021-07-24 15:40] LABS: Ferritin 86 ng/mL (20-250)
[2021-07-24] MEDS: Fluconazole 400 MG/200 ML 400 MG/200 ML BAG IVPB SCH (17:26)
[2021-07-24] MEDS: Vancomycin 1,500 MG/265 ML IV.SOLN IVPB SCH (18:40)
[2021-07-25] MEDS: *HR* OxyCODONE Immed Rel 5 MG TABLET PO PRN ×4 (00:59→22:39)
[2021-07-25] MEDS: 0.9 % Sodium Chloride 1,000 ML IVC SCH ×5 (01:13→21:37)
[2021-07-25 05:26] LABS: Hematocrit 29.7 % (37.5-50.1); Hemoglobin 9.2 g/dL (12.9-16.9); Mean Corpuscular Hemoglobin 25.8 pg (28.0-33.3); Mean Corpuscular Volume 83.2 fL (83.0-100.0); Mean Platelet Volume 9.8 fL (9.4-12.4); Platelet Count 292 K/mcL (140-400); Red Blood Count 3.57 M/mcL (4.19-5.50); Red Cell Distribution Width 14.8 % (11.5-14.5); White Blood Count 8.5 K/mcL (4.3-11.1)
[2021-07-25] MEDS: Insulin LISPRO 300 UNITS/3 ML VIAL SUBQ SCH ×3 (07:34→17:07)
[2021-07-25 08:20] LABS: Uric Acid 3.8 mg/dL (2.3-7.6)
[2021-07-25 08:31] LABS: BUN/Creatinine Ratio 12 (6-26); Blood Urea Nitrogen 17 mg/dL (8-23); Calcium 8.8 mg/dL (8.6-10.3); Carbon Dioxide 28 mEq/L (23-29); Chloride 106 mEq/L (98-107); Glucose 137 mg/dL (70-105); Osmolality,Calculated 294 (280-300); Potassium 3.8 mEq/L (3.5-5.1); Sodium 140 mEq/L (136-145); eGFR For African Americans > 60 (> 60); eGFR For Non-African Americans 50 (> 60)
[2021-07-25] MEDS: Aspirin Enteric Coated 81 MG Tablet PO SCH (08:36)
[2021-07-25] MEDS: Metoprolol XL (24 HR) Succ 25 MG TAB.ER.24H PO SCH (08:36)
[2021-07-25] MEDS: Lactobacillus 1 EACH CAP.SPRINK PO SCH ×2 (08:36→20:05)
[2021-07-25] MEDS: Apixaban 5 MG TABLET PO SCH ×2 (08:37→20:05)
[2021-07-25] MEDS: polyethylene glycoL 3350 17 GM POWD.PACK PO SCH (08:37)
[2021-07-25] MEDS: Insulin DETEMIR 100 UNIT/ML X5UNITS SUBQ SCH ×2 (09:02→21:24)
[2021-07-25 10:15] LABS: Complement C3 148 mg/dL (87-200)
[2021-07-25] MEDS: Vancomycin 1,500 MG/265 ML IV.SOLN IVPB SCH (20:12)
[2021-07-26 07:29] LABS: BUN/Creatinine Ratio 13 (6-26); Blood Urea Nitrogen 19 mg/dL (8-23); Calcium 8.8 mg/dL (8.6-10.3); Carbon Dioxide 26 mEq/L (23-29); Chloride 106 mEq/L (98-107); Glucose 121 mg/dL (70-105); Osmolality,Calculated 292 (280-300); Potassium 3.6 mEq/L (3.5-5.1); Sodium 139 mEq/L (136-145); eGFR For African Americans > 60 (> 60); eGFR For Non-African Americans 50 (> 60)
[2021-07-26] MEDS: 0.9 % Sodium Chloride 1,000 ML IVC SCH (08:27)
[2021-07-26] MEDS: Insulin LISPRO 300 UNITS/3 ML VIAL SUBQ SCH ×3 (08:27→16:32)
[2021-07-26] MEDS: Lactobacillus 1 EACH CAP.SPRINK PO SCH ×2 (08:29→21:18)
[2021-07-26] MEDS: Aspirin Enteric Coated 81 MG Tablet PO SCH (08:29)
[2021-07-26] MEDS: Apixaban 5 MG TABLET PO SCH ×2 (08:29→21:18)
[2021-07-26] MEDS: Metoprolol XL (24 HR) Succ 25 MG TAB.ER.24H PO SCH (08:29)
[2021-07-26] MEDS: Insulin DETEMIR 100 UNIT/ML X5UNITS SUBQ SCH ×2 (08:36→21:18)
[2021-07-26] MEDS: polyethylene glycoL 3350 17 GM POWD.PACK PO SCH (08:36)
[2021-07-26] MEDS: *HR* OxyCODONE Immed Rel 5 MG TABLET PO PRN ×2 (08:36→16:31)
[2021-07-26] MEDS: Sacubitril/Valsartan 24/26 MG 1 TABLET PO SCH ×2 (10:52→21:18)
[2021-07-26] MEDS ORDERED: Vancomycin 1,750 MG/517.5 ML IV.SOLN IVPB SCH (20:00)
[2021-07-27 04:27] LABS: BUN/Creatinine Ratio 12 (6-26); Blood Urea Nitrogen 15 mg/dL (8-23); Calcium 8.9 mg/dL (8.6-10.3); Carbon Dioxide 24 mEq/L (23-29); Chloride 106 mEq/L (98-107); Glucose 124 mg/dL (70-105); Osmolality,Calculated 288 (280-300); Potassium 3.5 mEq/L (3.5-5.1); Sodium 138 mEq/L (136-145); eGFR For African Americans > 60 (> 60); eGFR For Non-African Americans 58 (> 60)
[2021-07-27] MEDS: Insulin LISPRO 300 UNITS/3 ML VIAL SUBQ SCH ×3 (08:15→17:49)
[2021-07-27] MEDS: 0.9 % Sodium Chloride 1,000 ML IVC SCH (08:16)
[2021-07-27] MEDS: Aspirin Enteric Coated 81 MG Tablet PO SCH (09:00)
[2021-07-27] MEDS: Sacubitril/Valsartan 24/26 MG 1 TABLET PO SCH (09:00)
[2021-07-27] MEDS: Apixaban 5 MG TABLET PO SCH (09:00)
[2021-07-27] MEDS: Lactobacillus 1 EACH CAP.SPRINK PO SCH (09:00)
[2021-07-27] MEDS: Metoprolol XL (24 HR) Succ 25 MG TAB.ER.24H PO SCH (09:00)
[2021-07-27] MEDS: polyethylene glycoL 3350 17 GM POWD.PACK PO SCH (09:01)
[2021-07-27] MEDS: Insulin DETEMIR 100 UNIT/ML X5UNITS SUBQ SCH (09:06)
[2021-07-27 11:16] LABS: Kappa Qnt Free Light Chains 23.64 mg/L (3.30-19.40); Lambda Qnt Free Light Chains 15.65 mg/L (5.71-26.30)
[2021-07-27] MEDS: Acetaminophen 325 MG TABLET PO PRN (11:28)
[2021-07-27] MEDS ORDERED: *HR* OxyCODONE/APAP 10/325 TABLET PO PRN (11:30)
[2021-07-27 15:40] VITALS: BP 129/76; PULSE 76; TEMP 98; O2SAT 98
[2021-07-27] MEDS ORDERED: Vancomycin 1,750 MG/517.5 ML IV.SOLN IVPB SCH (17:00)
[2021-07-28 04:56] LABS: Alpha 2 Globulin (PEP) 1.07 g/dL (0.48-1.05); Beta Globulin (PEP) 0.73 g/dL (0.48-1.10)
[2021-07-28 12:33] LABS: IFE Reflexed NOT DONE
[2021-07-28 21:03] LABS: ANCA IFA Titer <1:20 (<1:20)
[2021-07-29 10:18] LABS: ANCA IFA Pattern NONE DETECTED (None Detected); Serine Protease-3 Antibody 0 AU/mL (0-19)
== END 2021-07-27 19:51 | disposition home health service (06) | DRG 907 ==
LOC: 4WAOSI → SUATTDRO 07-15 01:15
PROVIDERS: ADMIT Internal Medicine; ATTEND General Practice